=== PATIENT | female | born 1945 | race Two or more races ===

== ENCOUNTER 2024-11-16 16:51 | Emergency (ER) | payer OTHER ==
[~2024-11-16] VITALS: Ht 162.6 cm; Wt 77.0 kg
[2024-11-16 17:20] VITALS: PULSE 72; RESP 16; O2SAT 96
[2024-11-16 17:33] LABS: Chloride 104 mmol/L (98-107); Potassium 3.6 mmol/L (3.5-5.1); Sodium 141 mmol/L (136-145)
[2024-11-16 17:34] LABS: Anion Gap 11 (5-15); Carbon Dioxide 26 mmol/L (20-31)
[2024-11-16 17:40] LABS: BUN/Creatinine Ratio 21.6 (10.0-20.0); Blood Urea Nitrogen 16 mg/dL (9-23); Glucose 102 mg/dL (74-106); Hematocrit 38.3 % (36.0-46.0); Hemoglobin 13.0 g/dL (12.2-16.2); Mean Corpuscular Hemoglobin 32.6 pg (28.0-32.0); Mean Corpuscular Volume 96.0 fL (80.0-100.0); Nucleated Red Blood Cells % 0.3 %
[2024-11-16 18:04] LABS: Calcium 10.4 mg/dL (8.7-10.4)
[2024-11-16] MEDS: levETIRAcetam 1000 mg/100ml 100 ML IV ONE (18:10)
--- NOTE | 2024-11-16 18:28 | DVH ---
Procedure: CT HEAD WITHOUT CONTRAST Study Date and Requested Time: 11/16/2024 05:38 PM History: seizure Comparison: None Dose: CTDI: 59.82 mGy DLP: 1178.8 mGycm Technique: Multiplanar images obtained through the brain without intravenous contrast. Findings: Postsurgical changes of left frontoparietal craniotomy with large area of left frontal, and parietal white matter hypodensities with slight involvement of the temporal and occipital lobes causing mass e ffect on the atrium and occipital horn of the left lateral ventricle. There is about 1 mm rightward m idline shift. No evidence of hydrocephalus. The basal cisterns are patent. The pituitary gland, sella and parasellar regions are unremarkable. The cerebellar tonsils are in nor mal position. The cerebellum is unremarkable. Bilateral lens replacement. Otherwise, orbits and globes are unremarkable. The paranasal sinuses and mastoids are clear. There are no worrisome calvarial lesions. Impression: Postsurgical changes of left frontoparietal craniotomy. There is large area of left frontal, and parietal white matter hypodensities with slight involvement of the temporal and occipital lobes causing mass effect on the atrium and occipital horn of the left lateral ventricle and about 1 mm rightward midline shift. MRI With and without contrast is recommende d for further evaluation of possible mass with associated perilesional /vasogenic edema. Critical Result: Left supratentorial vasogenic/perilesional edema with about 1 mm rightward midline s hift Findings discussed with KWAME ENCARNACION at 11/16/2024 06:25 PM, and acknowledged receipt and understand ing of the findings. ..
[2024-11-16 19:30] VITALS: PULSE 81; RESP 12; O2SAT 96
--- NOTE | 2024-11-16 19:34 | ED.PDOC ---
History of Present Illness HPI Comments 78-year-old female with PMHx Brain Cancer, Breast Cancer, Seizure, HLD presents with a chief complaint of seizure at home. Patient reports that she had a seizure at home that lasted about 2-3 minutes. Patient states that she takes Keppra for her seizures. Patient was at baseline upon arrival to ER with a GCS of 15. Patient also reports feeling constipated for the past 10 days. No other symptoms or modifying factors present at this time. Chief Complaint: Seizure Time Seen by MD: 19:28 Reviewed Notes: Nurses Notes, Medications, Allergies Allergies: Coded Allergies: NO KNOWN ALLERGIES (Unverified , 11/16/24) Information Source: Patient Mode of Arrival: Ambulatory Severity: Moderate Timing: Hours Duration: Since onset Prehospital treatment: None Past Medical History PAST MEDICAL HISTORY: Cancer (BREAST AND BRAIN), High Lipids, Seizures Surgical History (Other): LUMPECTOMY, CRAINIOTOMY, CATARACTS IT APPLICATION SUPPORT ANALYST History: Denies all IT APPLICATION SUPPORT ANALYST Hx Family History Family History: Reviewed,noncontributory to illness Social History Smoker: Non-Smoker Alcohol: Denies ETOH Use Drugs: Denies Drug Use Lives In: Home Constitutional: denies: chills, diaphoresis, fatigue, fever, malaise, sweats, weakness, others EENTM: denies: blurred vision, double vision, ear bleeding, ear discharge, ear drainage, ear pain, ear ringing, eye pain, eye redness, hearing loss, mouth pain, mouth swelling, nasal discharge, nose bleeding, nose congestion, nose pain, photophobia, tearing, throat pain, throat swelling, voice changes, others Respiratory: denies: cough, hemoptysis, orthopnea, SOB at rest, shortness of breath, SOB with excertion, stridor, wheezing, others Cardiovascular: denies: chest pain, dizzy spells, diaphoresis, Dyspnea on exertion, edema, irregular heart beat, left arm pain, lightheadedness, palpitations, PND, syncope, others Gastrointestinal: reports: constipated; denies: abdomen distended, abdominal pain, blood streaked bowels, diarrhea, dysphagia, difficulty swallowing, hematemesis, melena, nausea, poor appetite, poor fluid intake, rectal bleeding, rectal pain, vomiting, others Genitourinary: denies: abnormal vagina bleeding, burning, dyspareunia, dysuria, flank pain, frequency, hematuria, incontinence, pain, , vagina discharge, urgency, others Neurological: reports: seizure; denies: dizziness, fainting, headache, left sided numbness, left sided weakness, numbness, paresthesia, pre-existing deficit, right sided numbness, right sided weakness, speech problems, tingling, tremors, weakness, others Musculoskeletal: denies: back pain, gout, joint pain, joint swelling, muscle pain, muscle stiffness, neck pain, others Integumetry: denies: bruises, change in color, change in hair/nails, dryness, laceration, lesions, lumps, rash, wounds, others Allergic/Immunocompromised: denies: Difficulty Healing, Frequent Infections, Hives, Itching, others Hematologic/Lymphatic: denies: anemia, blood clots, easy bleeding, easy bruising, swollen glands, others Endocrine: denies: excessive hunger, excessive sweating, excessive thirst, excessive urination, flushing, intolerance to cold, intolerance to heat, unexplained weight gain, unexplained weight loss, others Psychiatric: denies: anxiety, bipolar disorder, depression, hopeless, panic disorder, schizophrenia, sleepless, suicidal, others All Other Systems: Reviewed and Negative Physical Exam General Appearance: Moderate Distress HEENT: Normal ENT Inspection, Pharynx Normal, TMs Normal Neck: Full Range of Motion, Non-Tender, Normal, Normal Inspection Respiratory: Chest Non-Tender, Lungs Clear, No Accessory Muscle Use, No Respiratory Distress, Normal Breath Sounds Cardiovascular: No Edema, No JVD, No Murmur, No Gallop, Normal Peripheral Pulses, Regular Rate/Rhythm Breast Exam: Deferred Gastrointestinal: No Organomegaly, Non Tender, No Pulsatile Mass, Normal Bowel Sounds, Soft Genitalia: Deferred Pelvic: Deferred Rectal: Deferred Extremities: No calf tenderness, Normal capillary refill, Normal inspection, Normal range of motion, Non-tender, No pedal edema Musculoskeletal : Apperance: Normal Neurologic: web retailer II-XII nml as Tested, Motor Weakness, Normal Affect, Normal Mood, No Sensory Deficits Cerebellar Function: Unable to Test Reflexes: Normal Skin: Dry, Pallor, Warm Lymphatic: No Adenopathy Was a procedure done? Was a procedure done?: No EKG EKG : Pulse Rate (adult): 79 [place]: Normal Cardiac Rhythm: NSR Block: None Hypertrophy: None ST: Normal Differential Dx Considerations may include: Intracranial mass, intracranial bleed, generalized weakness X-Ray, Labs, Meds, VS Vital Signs Date Time Temp Pulse Resp B/P (MAP) Pulse Ox O2 Delivery O2 Flow Rate FiO2 11/16/24 19:34 79 11/16/24 19:08 79 11/16/24 17:20 72 16 134/78 (96) 96 11/16/24 17:20 72 16 96 Room Air* 0 21 11/16/24 17:12 98.6 86 18 138/88 (105) 99 98.6 Lab Test 11/16/24 18:15 11/16/24 17:11 Range/Units POC Glucose 93 70-106 mg/dl White Blood Count 4.3 L 4.4-10.8 10^3/uL Red Blood Count 3.98 L 4.0-5.20 10^6/uL Hemoglobin 13.0 12.2-16.2 g/dL Hematocrit 38.3 36.0-46.0 % Mean Corpuscular Volume 96.0 80.0-100.0 fL Mean Corpuscular Hemoglobin 32.6 H 28.0-32.0 pg Mean Corpuscular Hemoglobin Concent 33.9 32.0-36.0 g/dL Red Cell Distribution Width 14.4 H 11.8-14.3 % Platelet Count 189 140-450 10^3/uL Mean Platelet Volume 7.2 6.9-10.8 fL Neutrophils (%) (Auto) 75.2 37.0-80.0 % Lymphocytes (%) (Auto) 13.0 10.0-50.0 % Monocytes (%) (Auto) 10.6 0.0-12.0 % Eosinophils (%) (Auto) 1.0 0.0-7.0 % Basophils (%) (Auto) 0.2 0.0-2.0 % Neutrophils # (Auto) 3.3 1.6-8.6 10 ^3/uL Lymphocytes # (Auto) 0.6 0.4-5.4 10 ^3/uL Monocytes # (Auto) 0.5 0-1.3 10 ^3/uL Eosinophils # (Auto) 0 0-0.8 10 ^3/uL Basophils # (Auto) 0 0-0.2 10 ^3/uL Nucleated Red Blood Cells 0.3 % Sodium Level 141 136-145 mmol/L Potassium Level 3.6 3.5-5.1 mmol/L Chloride Level 104 98-107 mmol/L Carbon Dioxide Level 26 20-31 mmol/L Anion Gap 11 5-15 Blood Urea Nitrogen 16 9-23 mg/dL Creatinine 0.74 0.550-1.02 mg/dL Glomerular Filtration Rate Calc 83 >90 mL/min BUN/Creatinine Ratio 21.6 H 10.0-20.0 Serum Glucose 102 74-106 mg/dL Calcium Level 10.4 8.7-10.4 mg/dL Current Medications Medications (Trade) Dose Ordered Sig/Fifi Route Start Time Stop Time Status Last Admin Levetiracetam 100 ml @ 400 mls/hr ONCE ONCE IV 11/16/24 17:00 11/16/24 17:14 DC 11/16/24 18:10 IV Hep-Lock was established The patient was started on Keppra IV piggyback The CAT scan of the head shows: Impression: Postsurgical changes of left frontoparietal craniotomy. There is large area of left frontal, and parietal white matter hypodensities with slight involvement of the temporal and occipital lobes causing mass effect on the atrium and occipital horn of the left lateral ventricle and about 1 mm rightward midline shift. MRI With and without contrast is recommended for further evaluation of possible mass with associated perilesional /vasogenic edema. 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 Images Reviewed?: Images reviewed and evaluated by me Time of 1ST Reevaluation: 19:59 Reevaluation 1ST: Improved Patient Education/Counseling: Diagnosis, Treatment, Prognosis Family Education/Counseling: No Family Present SEPSIS Sepsis Screen Date sepsis recognized/suspect: Nov 16, 2024 Time Sepsis recognized/suspect: 1719 Recent Procedure: No On Antibiotic Therapy: No Respiratory Rate >20: No Heart Rate >90: No Temp<36 C (96.8 F) or >38.3 C: No SBP <90 or MAP <65 mmHG: No New Acute Mental Status Change: No Is the patient on CPAP, BIPAP,: No Physician Orders Pulse Oximetry (11/16/24 16:57) Blood Pressure (11/16/24 16:57) Heplock Iv (11/16/24 16:57) Seizure Precautions (11/16/24 16:57) Upholstery Auto Trimmer (11/16/24 16:57) Electrocardigram (11/16/24 16:57) Head Without Contrast (11/16/24 16:57) Urinalysis (11/16/24 16:57) Dexamethasone Injection (Decadron Inject (11/16/24 21:00) Vital Signs Date Time Temp Pulse Resp B/P (MAP) Pulse Ox O2 Delivery O2 Flow Rate FiO2 11/16/24 19:34 79 11/16/24 19:08 79 11/16/24 17:20 72 16 134/78 (96) 96 11/16/24 17:20 72 16 96 Room Air* 0 21 11/16/24 17:12 98.6 86 18 138/88 (105) 99 98.6 Laboratory Tests Test 11/16/24 17:11 White Blood Count 4.3 10^3/uL (4.4-10.8) L Medications Medications Dose Ordered Sig/Fifi Route Start Time Stop Time Status Last Admin Dose Admin Levetiracetam 100 ml @ 400 mls/hr ONCE ONCE IV 11/16/24 17:00 11/16/24 17:14 DC 11/16/24 18:10 Departure 1 Departure Time of Disposition: 20:46 Impression: Primary Impression: Breakthrough seizure Additional Impression: Intracranial mass Disposition: 09 ADMITTED INPATIENT Admit to: Tele Condition: Fair Critical Care Note Critical Care Time?: Yes (45 min-critical care time only) Stability Stability form required: Yes Unstable for transfer: Telemetry monitoring (Telemetry monitoring required), ED Physician Assesment (Clinical assesment) Heart Score Heart Score: Heart Score Response (Comments) Value History N/A 0 EKG N/A 0 Age N/A 0 Risk Factors N/A 0 Troponin N/A 0 Total 0 I personally scribed for KWAME ENCARNACION MD ([email or web address]) on 11/16/24 at 19:34. Electronically submitted by Can Quiñones ([email or web address]). KWAME ENCARNACION MD Nov 16, 2024 19:34
[2024-11-16] MEDS: LEVALBUTEROL HCL 1.25 MG/3 ML NEB NEB SCH (21:06)
[2024-11-16] MEDS: LORazepam 2MG/ML-1ML VIAL IV ONE (22:11)
[2024-11-17 00:55] VITALS: BP 130/74; PULSE 91; RESP 15; TEMP 98.9; O2SAT 96
[2024-11-17] MEDS: LORazepam 2MG/ML-1ML VIAL IV ONE (01:00)
== END 2024-11-16 20:59 | disposition short-term general hospital (02) ==
LOC: ER 16:51 → EDBD 16:51 → ER 20:59
DX: R56.9 Unspecified convulsions (principal); R22.0 Localized swelling, mass and lump, head; E78.5 Hyperlipidemia, unspecified; Z85.3 Personal history of malignant neoplasm of breast; Z98.890 Other specified postprocedural states
CPT/HCPCS: 36415; 70450; 80048; 82947; 85025; 96365; 96375; 96376; 99285; J1100; J1953; J2060; 82962; 99291

== ENCOUNTER 2025-01-04 16:13 | Inpatient (IN) | payer OTHER ==
[2025-01-04] VITALS (20 sets, daily range): BP systolic 76–122; BP diastolic 34–87; PULSE 80–123; RESP 20–28; TEMP 96.6–100.4; O2SAT 91–100
[~2025-01-04] VITALS: Ht 167.6 cm; Wt 69.6 kg
[2025-01-04] MEDS ORDERED: ETOMIDATE (2MG/ML) 20ML VIAL IV ONE (16:19)
[2025-01-04] MEDS ORDERED: ROCURONIUM 10MG/ML 10ML VIAL IV ONE (16:19)
[2025-01-04] MEDS: ETOMIDATE (2MG/ML) 20ML VIAL IV ONE (16:25)
[2025-01-04] MEDS: ROCURONIUM 10MG/ML 10ML VIAL IV ONE (16:25)
--- NOTE | 2025-01-04 16:25 | ED.PDOC ---
SOB-HPI HPI Comments 79-year-old female presents to the ED via EMS with a chief complaint of shortness a breath onset today about 30 minutes prior to ED arrival. Patient was recently discharged from [facility] with a diagnosis of PE, patient was also diagnosed with sepsis a week ago. Patient is from [facility], got up from her bed and was [facility], began experiencing shortness of breath, nursing staff noticed, O2 sat was in the 70s. Upon EMS a rrival patient's O2 sat was 75%, was placed on a CPAP. Is GCS 15, is not able to speak due to respiratory distress. PMHx cancer, HLD, PE, seizure. No other symptoms or modifying factors present at this time. Time Seen by MD: 16:15 Reviewed notes: Medications, Allergies Information Source: Emergency Med Personnel Mode of Arrival: EMS Severity: Moderate Timing: Minutes Duration: Since onset Context: At Rest PE Risk Factors: None History of: DVT/PE Prehospital treatment: C-Pap Modifying Factors: Nothing Past Medical History PAST MEDICAL HISTORY: Cancer, High Lipids, PE, Seizures Surgical History: Denies all surgeries TOUCH UP WORKER History: Denies all TOUCH UP WORKER Hx Family History Family History: Reviewed,noncontributory to illness Social History Smoker: Non-Smoker Alcohol: Denies ETOH Use Drugs: Denies Drug Use Lives In: Home Constitutional: denies: chills, diaphoresis, fatigue, fever, malaise, sweats, weakness, others EENTM: denies: blurred vision, double vision, ear bleeding, ear discharge, ear drainage, ear pain, ear ringing, eye pain, eye redness, hearing loss, mouth pain, mouth swelling, nasal discharge, nose bleeding, nose congestion, nose pain, photophobia, tearing, throat pain, throat swelling, voice changes, others Respiratory: reports: shortness of breath; denies: cough, hemoptysis, orthopnea, SOB at rest, SOB with excertion, stridor, wheezing, others Cardiovascular: denies: chest pain, dizzy spells, diaphoresis, Dyspnea on exertion, edema, irregular heart beat, left arm pain, lightheadedness, palpitations, PND, syncope, others Gastrointestinal: denies: abdomen distended, abdominal pain, blood streaked bowels, constipated, diarrhea, dysphagia, difficulty swallowing, hematemesis, melena, nausea, poor appetite, poor fluid intake, rectal bleeding, rectal pain, vomiting, others Genitourinary: denies: abnormal vagina bleeding, burning, dyspareunia, dysuria, flank pain, frequency, hematuria, incontinence, pain, , vagina discharge, urgency, others Neurological: denies: dizziness, fainting, headache, left sided numbness, left sided weakness, numbness, paresthesia, pre-existing deficit, right sided numbness, right sided weakness, seizure, speech problems, tingling, tremors, weakness, others Musculoskeletal: denies: back pain, gout, joint pain, joint swelling, muscle pain, muscle stiffness, neck pain, others Integumetry: denies: bruises, change in color, change in hair/nails, dryness, laceration, lesions, lumps, rash, wounds, others Allergic/Immunocompromised: denies: Difficulty Healing, Frequent Infections, Hives, Itching, others Hematologic/Lymphatic: denies: anemia, blood clots, easy bleeding, easy bruising, swollen glands, others Endocrine: denies: excessive hunger, excessive sweating, excessive thirst, excessive urination, flushing, intolerance to cold, intolerance to heat, un explained weight gain, unexplained weight loss, others Psychiatric: denies: anxiety, bipolar disorder, depression, hopeless, panic disorder, schizophrenia, sleepless, suicidal, others All Other Systems: Reviewed and Negative Physical Exam General Appearance: Severe Distress HEENT: Normal ENT Inspection, Pharynx Normal, TMs Normal Neck: Full Range of Motion, Non-Tender, Normal, Normal Inspection Respiratory: Accessory Muscle Use, Respiratory Distress Cardiovascular: Tachycardia Breast Exam: Deferred Gastrointestinal: No Organomegaly, Non Tender, No Pulsatile Mass, Normal Bowel Sounds, Soft Genitalia: Deferred Pelvic: Deferred Rectal: Deferred Extremities: No calf tenderness, No pedal edema Musculoskeletal : Apperance: Normal Neurologic: Alert, No Motor Deficits, No Sensory Deficits Cerebellar Function: NOT DONE Reflexes: NOT DONE Skin: Other (Bilateral lower extremity skin mottled) Peripheral Pulses: 3+ Radial (R), 3+ Radial (L) Lymphatic: No Adenopathy Was a procedure done? Was a procedure done?: Yes Sedation Sedation?: No Informed consent obtained: Yes Sedation total time: patient is currently under sedation Central Line Recorder of insertion practice: Observer Occupation of liquid flavor compounder: Name of liquid flavor compounder (Resident) Indication: Hypotension, CVP monitoring Room prepared for procedure: Yes Flight Radio Operator performed hand hygien: Yes Maximal sterile barrier precau: Mask/Eye shield, Sterile gown Skin Preparation: Chlorhexidine gluconate, Providine iodine Skin preparation completely dr: Yes Insertion site: Right, Internal jugular Central line catheter type: [id number] dialysis Number of lumens: 3 Antiseptic ointment applied to: Yes Post Assessment: Chest X-Ray Intubation Indication: Respiratory Insufficiency Prep: Preoxygenation Pretreated with: Sedation, Other (etomidate 20 mg, Roccuronium 100 mg ) Medicated with: Vecuronium Intubation Approach: Orotracheal (8.0) Intubation size: cm (24 ) Informed consent obtained: Yes Risks/benefits/alt described: Yes Differential Dx Differential Diagnosis: Anxiety, Asthma, Bronchitis, CHF, COPD X-Ray, Labs, Meds, VS Vital Signs Date Time Temp Pulse Resp B/P (MAP) Pulse Ox O2 Delivery O2 Flow Rate FiO2 01/04/25 16:30 123 20 122/89 (100) 100 100 01/04/25 16:15 101.7 131 20 119/75 (90) 100 101.7 01/04/25 16:13 133 32 87/59 80 Lab Test 01/04/25 17:15 Range/Units White Blood Count 10.3 4.4-10.8 10^3/uL Red Blood Count 3.85 L 4.0-5.20 10^6/uL Hemoglobin 12.4 12.2-16.2 g/dL Hematocrit 37.0 36.0-46.0 % Mean Corpuscular Volume 96.0 80.0-100.0 fL Mean Corpuscular Hemoglobin 32.1 H 28.0-32.0 pg Mean Corpuscular Hemoglobin Concent 33.5 32.0-36.0 g/dL Red Cell Distribution Width 15.2 H 11.8-14.3 % Platelet Count 181 140-450 10^3/uL Mean Platelet Volume 7.1 6.9-10.8 fL Neutrophils (%) (Auto) 84.0 H 37.0-80.0 % Lymphocytes (%) (Auto) 13.2 10.0-50.0 % Monocytes (%) (Auto) 2.6 0.0-12.0 % Eosinophils (%) (Auto) 0.2 0.0-7.0 % Basophils (%) (Auto) 0.0 0.0-2.0 % Neutrophils # (Auto) 8.6 1.6-8.6 10 ^3/uL Lymphocytes # (Auto) 1.4 0.4-5.4 10 ^3/uL Monocytes # (Auto) 0.3 0-1.3 10 ^3/uL Eosinophils # (Auto) 0 0-0.8 10 ^3/uL Basophils # (Auto) 0 0-0.2 10 ^3/uL Nucleated Red Blood Cells 0.1 % Prothrombin Time Pending Prothrombin Time INR Pending Activated Partial Thromboplast Time Pending Sodium Level 139 136-145 mmol/L Potassium Level 3.4 L 3.5-5.1 mmol/L Chloride Level 107 98-107 mmol/L Carbon Dioxide Level 22 20-31 mmol/L Anion Gap 10 5-15 Blood Urea Nitrogen 13 9-23 mg/dL Creatinine 0.47 L 0.550-1.02 mg/dL Glomerular Filtration Rate Calc 97 >90 mL/min BUN/Creatinine Ratio 27.7 H 10.0-20.0 Serum Glucose 150 H 74-106 mg/dL Lactic Acid Level Pending Calcium Level 8.1 L 8.7-10.4 mg/dL Total Bilirubin 1.1 H 0.2-1.0 mg/dL Aspartate Amino Transferase (AST) 88 H 13-40 U/L Alanine Aminotransferase (ALT) 93 H 7-40 U/L Alkaline Phosphatase 322 H 46-116 U/L Total Protein 6.0 5.7-8.2 g/dL Albumin 3.3 3.2-4.8 g/dL Current Medications Medications (Trade) Dose Ordered Sig/Fifi Route Start Time Stop Time Status Last Admin Vancomycin HCl 250 ml @ 250 mls/hr ONCE ONCE IV 01/04/25 16:45 01/04/25 17:44 DC 01/04/25 17:31 Sodium Chloride 1,000 ml @ 1,000 mls/hr Q1H ONCE IV 01/04/25 16:45 01/04/25 17:44 DC 01/04/25 17:07 Acetaminophen (Ofirmev) 1,000 mg ONCE ONCE IV 01/04/25 17:30 01/04/25 17:31 DC 01/04/25 17:33 Patient alert. Placed on oxygen. Respiratory distress. Using accessory muscles. Skin mottled. Tachycardia. Sepsis protocol. Had to intubate the patient. Placed a central line. Continue to monitor. Time of 1ST Reevaluation: 16:45 Reevaluation 1ST: Unchanged Patient Education/Counseling: Diagnosis, Treatment, Prognosis Family Education/Counseling: No Family Present SEPSIS Sepsis Screen Physician Orders Ventilator Orders (01/04/25 16:30) Abg W/ Co-Ox (01/04/25 18:00) Respiratory Culture W/ Gs (01/04/25 16:30) PTPTT (01/04/25 16:40) Urinalysis (01/04/25 16:40) Chest Portable (01/04/25 16:40) Accucheck (01/04/25 16:40) Blood Culture (01/04/25 16:40) Lactic Acid W/ Reflex Order (01/04/25 18:00) Cefepime 1gm/50ml (Maxipime 1gm/50ml) (01/04/25 22:00) Notify Md If Map <65 Or Bp<90 (01/04/25 16:40) If Map<65 Start Vasopressor (01/04/25 16:40) Sepsis Reassesment After Fluid (01/04/25 17:40) Sodium Chloride 0.9% (01/04/25 16:45) Midazolam Drip 50 Mg/50ml (Versed Drip 5 (01/04/25 17:00) Rass Sedation Scale Q1HR (01/04/25 16:47) Vital Signs Date Time Temp Pulse Resp B/P (MAP) Pulse Ox O2 Delivery O2 Flow Rate FiO2 01/04/25 16:30 123 20 122/89 (100) 100 100 01/04/25 16:15 101.7 131 20 119/75 (90) 100 101.7 01/04/25 16:13 133 32 87/59 80 Laboratory Tests Test 01/04/25 17:15 Lactic Acid Level Pending White Blood Count 10.3 10^3/uL (4.4-10.8) Medications Medications Dose Ordered Sig/Fifi Route Start Time Stop Time Status Last Admin Dose Admin Acetaminophen 1,000 mg ONCE ONCE IV 01/04/25 17:30 01/04/25 17:31 DC 9/9/25 17:33 Sodium Chloride 1,000 ml @ 1,000 mls/hr Q1H ONCE IV 01/04/25 16:45 01/04/25 17:44 DC 01/04/25 17:07 Vancomycin HCl 250 ml @ 250 mls/hr ONCE ONCE IV 01/04/25 16:45 01/04/25 17:44 DC 01/04/25 17:31 Departure 1 Departure Time of Disposition: 16:47 Impression: Primary Impression: Acute respiratory failure Qualified Codes: J96.01 - Acute respiratory failure with hypoxia Additional Impression: Sepsis Qualified Codes: A41.9 - Sepsis, unspecified organism Disposition: ADMITTED INPATIENT Admit to: ICU Condition: Guarded Critical Care Note Critical Care Time?: Yes (90 min-critical care time only) Stability Stability form required: No Heart Score Heart Score: Heart Score Response (Comments) Value History Slightly Suspicious 0 EKG Normal 0 Age >65 2 Risk Factors >3 or Hx ASHD 2 Troponin Normal limit 0 Total 4 I personally scribed for STEFANO REED MD ([email or web address]) on 01/04/25 at 16:25. Electronically submitted by Alis Pinedo ([email or web address]). I personally scribed for STEFANO REED MD ([email or web address]) on 01/04/25 at 16:33. Electronically submitted by Alis Pinedo ([email or web address]). I personally scribed for STEFANO REED MD ([email or web address]) on 01/04/25 at 16:35. Electronically submitted by Alis Pinedo ([email or web address]). STEFANO REED MD Jan 04, 2025 16:25
[2025-01-04] MEDS: MIDAZOLAM DRIP 50 mg/50mL 50 ML IV ONE (16:32)
[2025-01-04] MEDS: MIDAZOLAM DRIP 50 mg/50mL 50 ML IV SCH (17:00)
[2025-01-04] MEDS: SODIUM CHLORIDE 0.9% 1,000 ML IV ONE ×2 (17:07→17:45)
--- NOTE | 2025-01-04 17:08 | DVH ---
EXAM: XY CHEST PORTABLE HISTORY: sob TECHNIQUE: 1 view of the chest COMPARISON: None FINDINGS/IMPRESSION: LUNGS: Hazy alveolar opacities of the periphery of bilateral upper lobes. MEDIASTINUM: Unremarkable BONES: No acute osseous abnormality OTHER: Endotracheal tube 5 cm above the gin. Enteric tube in the stomach.
[2025-01-04] MEDS: VANCOMYCIN 1GM/250ML KIT 250 ML IV ONE (17:31)
[2025-01-04 17:33] LABS: Hematocrit 37.0 % (36.0-46.0); Hemoglobin 12.4 g/dL (12.2-16.2); Mean Corpuscular Hemoglobin 32.1 pg (28.0-32.0); Mean Corpuscular Volume 96.0 fL (80.0-100.0); Nucleated Red Blood Cells % 0.1 %
[2025-01-04] MEDS: ACETAMINOPHEN IV 1000 MG/100ML (10MG/ML) IV ONE (17:33)
[2025-01-04 17:45] LABS: Alanine Aminotransferase 93 U/L (7-40); Albumin 3.3 g/dL (3.2-4.8); Alkaline Phosphatase 322 U/L (46-116); Anion Gap 10 (5-15); BUN/Creatinine Ratio 27.7 (10.0-20.0); Bilirubin, Total 1.1 mg/dL (0.2-1.0); Blood Urea Nitrogen 13 mg/dL (9-23); Calcium 8.1 mg/dL (8.7-10.4); Carbon Dioxide 22 mmol/L (20-31); Chloride 107 mmol/L (98-107); Glucose 150 mg/dL (74-106); Potassium 3.4 mmol/L (3.5-5.1); Sodium 139 mmol/L (136-145); Total Protein 6.0 g/dL (5.7-8.2)
[2025-01-04] MEDS: NOREPINEPHRINE 8 MG/250ML KIT 250 ML IV SCH (17:50)
[2025-01-04 17:51] LABS: INR 1.11 (0.9-1.15); Partial Thromboplastin Time 26.1 SEC (24.5-34.5); Prothrombin Time 11.6 sec (9.3-11.8)
[2025-01-04] MEDS: NOREPINEPHRINE 8 MG/250ML KIT 250 ML IV ONE (18:01)
[2025-01-04 18:12] LABS: Lactic Acid w/Reflex 2.7 mmol/L (0.4-2.0)
--- NOTE | 2025-01-04 18:56 | DVH ---
CHEST RADIOGRAPH Indication: CENTRAL LINE PLACEMENT Technique: XY CHEST XRAY 1 VIEW COMPARISON: 01/05/2020 FINDINGS: The cardiac silhouette is enlarged. The lungs demonstrate bilateral patchy airspace opacities. There is more pronounced right upper lung airspace disease and left mid lung airspace disease. Left midlun g cavitary appearing lesion measuring 7 cm. The pulmonary vasculature is prominent. Small bilateral p leural effusions, increased from prior examination. There is no pneumothorax. Nasogastric tube projects towards stomach. Endotracheal tube tip projects 3.9 cm above gin. Righ t IJ catheter tip projects over SVC IMPRESSION: As above. Recommend CT chest to further evaluate. Follow-up to resolution.
[2025-01-04 19:29] LABS: Urine Budding Yeast MANY /hpf (None Seen); Urine Protein, UAD 1+ (Negative)
[2025-01-04] MEDS ORDERED: MORPHINE SULFATE INJ 2 MG/ml SYRG IV PRN (19:30)
[2025-01-04] MEDS ORDERED: ONDANSETRON HCL 4 MG/2 ML VIAL IV PRN (19:30)
[2025-01-04] MEDS ORDERED: VANCOMYCIN PER PHARMACY 0 MG IV SCH (19:30)
[2025-01-04] MEDS ORDERED: NITROGLYCERIN 0.4 MG SL TAB SL PRN (19:30)
[2025-01-04] MEDS ORDERED: ACETAMINOPHEN 325 MG TAB PO PRN (19:30)
[2025-01-04] MEDS: CEFEPIME 1GM/50ML 50 ML IV SCH (22:05)
[2025-01-04 22:23] LABS: Base Excess -7.0 mmol/L (-2.0-3.0)
[2025-01-04] MEDS: IOHEXOL 350 MG/ML 100ML IJ ONE (22:51)
--- NOTE | 2025-01-04 23:33 | DVH ---
EXAM: CT CT ANGIO CHEST CONTRAST History: r/o pe, SOB Comparison Study: None TECHNIQUE: A digital associate professor of sociology image was obtained. During the uneventful, intravenous administration of c ontrast material, multislice data acquisition was obtained through the chest. 3-D postprocessing is performed by technologist including MIP imaging Radiation Dose : CTDI vol 23.68 mGy, DLP 23.68 mGy*cm. Findings: Evaluation is degraded by respiratory motion. Lungs /pleura: There are peripheral opacities within the upper lobes favored to reflect pulmonary inf arcts. There are small bilateral pleural effusions with adjacent opacity. An endotracheal tube is not ed. Heart/Great vessels: There is mild cardiomegaly. There are filling defects within the main pulmonary arteries extending into the segmental and subsegmental branches. There is enlargement of the right ve ntricle suggesting right heart strain. There are mild atherosclerotic calcifications of the aorta. Mediastinum: Unremarkable. Soft tissues/Bones: Unremarkable Upper abdomen: There is cholelithiasis. There is reflux of contrast into the hepatic veins and IVC. A nasogastric tube is noted. Impression: 1. Saddle pulmonary embolus with suggestion of right heart strain. Additional pulmonary emboli as det yaima. 2. Bilateral pulmonary infarcts. 3. Small bilateral pleural effusions with adjacent opacity. 4. Additional findings as detailed. Critical Result: Pumonary Emboli Findings discussed with MARIMAR Alex , at 01/04/2025 11:30 PM, and acknowledged receipt and understanding of the findings.
[2025-01-05] VITALS (35 sets, daily range): BP systolic 82–129; BP diastolic 47–93; PULSE 76–109; RESP 20–29; TEMP 96.6–98.6; O2SAT 96–100
[2025-01-05] MEDS ORDERED: HEPARIN SODIUM (PORCINE) 5000 UNITS/ML 1ML VIAL IV ONE
[2025-01-05] MEDS ORDERED: HEPARIN DRIP/D5W 100UNITS/ML 250 ML IV SCH
[2025-01-05 00:30] LABS: INR 1.08 (0.9-1.15); Partial Thromboplastin Time 29.3 SEC (24.5-34.5); Prothrombin Time 11.4 sec (9.3-11.8)
[2025-01-05 00:51] LABS: Hematocrit 31.7 % (36.0-46.0); Hemoglobin 11.1 g/dL (12.2-16.2); Mean Corpuscular Hemoglobin 32.7 pg (28.0-32.0); Mean Corpuscular Volume 94.0 fL (80.0-100.0); Nucleated Red Blood Cells % 0.1 %
[2025-01-05] MEDS: FUROSEMIDE 20 MG/2 ML VIAL IV ONE (01:46)
[2025-01-05] MEDS: ENOXAPARIN SOD 100 MG/1 ML SYRINGE SC SCH (01:47)
--- NOTE | 2025-01-05 02:44 | DVHHP2 ---
History of Present Illness Reason for Visit: Shortness for breath History of Present Illness 79-year-old female presents for evaluation of shortness for breath. Patient is currently sedated and intubated. Patient with a history of pulmonary embolism diagnosed two weeks ago at [facility]. Patient recently discharged couple of days ago from [facility] after being admitted and treated for sepsis secondary to UTI. Patient was sent to [place] in assisted living. Patient started having shortness for breath and was brought in for evaluation. On arrival to the emergency department patient was placed on CPAP and subsequently emergently intubated for airway protection. Past Medical History Glioblastoma, dyslipidemia, seizure, pulmonary embolism Past Surgical History Tumor removal Family History Noncontributory Smoke: No ALCOHOL: none Drugs: None Review of Systems Review of Systems Unable to complete review of systems the patient is sedated and intubated. Allergies: Coded Allergies: NO KNOWN ALLERGIES (Unverified , 11/16/24) Medications Current Medications Medications Dose Ordered Sig/Fifi Route Start Time Stop Time Status Last Admin Dose Admin Cefepime HCl 50 ml @ 12.5 mls/hr Q8HR IV 01/04/25 22:00 01/04/25 22:05 12.5 MLS/HR Midazolam HCl 50 ml @ 1 mls/hr Q24H IV 01/04/25 17:00 01/04/25 22:06 7 MLS/HR Norepinephrine Bitartrate 250 ml @ 3.75 mls/hr Q24H IV 01/04/25 18:00 01/04/25 17:50 3.75 MLS/HR Vancomycin HCl 0 ml @ 0 mls/hr UD IV 01/04/25 19:30 Ondansetron HCl 4 mg Q4HP PRN IV 01/04/25 19:30 Acetaminophen 650 mg Q6HP PRN PO 01/04/25 19:30 Nitroglycerin 0.4 mg Q5MINP PRN SL 01/04/25 19:30 Morphine Sulfate 2 mg Q30M PRN IV 01/04/25 19:30 Vancomycin HCl 250 ml @ 250 mls/hr DAILY@1800 IV 01/05/25 18:00 Enoxaparin Sodium 80 mg Q12HR SC 01/05/25 00:30 01/05/25 01:47 80 MG Exam Vital Signs Vital Signs Date Time Temp Pulse Resp B/P (MAP) Pulse Ox O2 Delivery O2 Flow Rate FiO2 01/05/25 02:01 97 27 109/75 (86) 100 30 01/04/25 23:18 99.0 99.0 01/04/25 16:15 Bi-Pap+ Exam Gen: 79-year-old female in mild distress Skin: Warm, dry, normal color and texture, no rash. HEENT: Normocephalic atraumatic, mucous membranes moist and pink. Neck: Cervical and supraclavicular nodes normal without enlargement, trachea is midline, thyroid gland is normal without masses. Pulmonary: Intubated Cardiac: Regular rate and rhythm. No murmur Abdomen: Soft, nontender, nondistended, bowel sounds present all 4 quadrants, no guarding, no rigidity, no organomegaly. Extremities: No cyanosis, clubbing, no edema Neuro: Sedated Labs/Xrays ORDERING PHYSICIAN: STEFANO REED MD PROCEDURE(s): CXR1 - CHEST XRAY 1 VIEW REASON: CENTRAL LINE PLACEMENT ORDER NUMBER(s): [id number], ACCESSION NUMBER(s): [id number] CHEST RADIOGRAPH Indication: CENTRAL LINE PLACEMENT Technique: XY CHEST XRAY 1 VIEW COMPARISON: 01/05/2020 FINDINGS: The cardiac silhouette is enlarged. The lungs demonstrate bilateral patchy airspace opacities. There is more pronounced right upper lung airspace disease and left mid lung airspace disease. Left midlung cavitary appearing lesion measuring 7 cm. The pulmonary vasculature is prominent. Small bilateral pleural effusions, increased from prior examination. There is no pneumothorax. Nasogastric tube projects towards stomach. Endotracheal tube tip projects 3.9 cm above gin. Right IJ catheter tip projects over SVC IMPRESSION: As above. Recommend CT chest to further evaluate. Follow-up to resolution. RING PHYSICIAN: BRITTANY BYERS PROCEDURE(s): CTACH - CT ANGIO CHEST CONTRAST REASON: r/o pe ORDER NUMBER(s): [id number], ACCESSION NUMBER(s): [id number] EXAM: CT CT ANGIO CHEST CONTRAST History: r/o pe, SOB Comparison Study: None TECHNIQUE: A digital motor vehicle license clerk image was obtained. During the uneventful, intravenous administration of contrast material, multislice data acquisition was obtained through the chest. 3-D postprocessing is performed by technologist including MIP imaging Radiation Dose : CTDI vol 23.68 mGy, DLP 23.68 mGy*cm. Findings: Evaluation is degraded by respiratory motion. Lungs /pleura: There are peripheral opacities within the upper lobes favored to reflect pulmonary infarcts. There are small bilateral pleural effusions with adjacent opacity. An endotracheal tube is noted. Heart/Great vessels: There is mild cardiomegaly. There are filling defects within the main pulmonary arteries extending into the segmental and subsegmental branches. There is enlargement of the right ventricle suggesting right heart strain. There are mild atherosclerotic calcifications of the aorta. Mediastinum: Unremarkable. Soft tissues/Bones: Unremarkable Upper abdomen: There is cholelithiasis. There is reflux of contrast into the hepatic veins and IVC. A nasogastric tube is noted. Impression: 1. Saddle pulmonary embolus with suggestion of right heart strain. Additional pulmonary emboli as detailed. 2. Bilateral pulmonary infarcts. 3. Small bilateral pleural effusions with adjacent opacity. 4. Additional findings as detailed. Critical Result: Pumonary Emboli Findings discussed with MARIMAR Alex , at 01/04/2025 11:30 PM, and acknowledged r eceipt and understanding of the findings. Labs Test 01/05/25 00:15 01/04/25 23:57 01/04/25 22:13 01/04/25 19:28 Range/Units White Blood Count 10.1 4.4-10.8 10^3/uL Red Blood Count 3.38 L 4.0-5.20 10^6/uL Hemoglobin 11.1 L 12.2-16.2 g/dL Hematocrit 31.7 #L 36.0-46.0 % Mean Corpuscular Volume 94.0 80.0-100.0 fL Mean Corpuscular Hemoglobin 32.7 H 28.0-32.0 pg Mean Corpuscular Hemoglobin Concent 34.8 32.0-36.0 g/dL Red Cell Distribution Width 14.7 H 11.8-14.3 % Platelet Count 188 140-450 10^3/uL Mean Platelet Volume 7.4 6.9-10.8 fL Neutrophils (%) (Auto) 91.9 H 37.0-80.0 % Lymphocytes (%) (Auto) 4.8 L 10.0-50.0 % Monocytes (%) (Auto) 3.2 0.0-12.0 % Eosinophils (%) (Auto) 0.0 0.0-7.0 % Basophils (%) (Auto) 0.1 0.0-2.0 % Neutrophils # (Auto) 9.3 H 1.6-8.6 10 ^3/uL Lymphocytes # (Auto) 0.5 0.4-5.4 10 ^3/uL Monocytes # (Auto) 0.3 0-1.3 10 ^3/uL Eosinophils # (Auto) 0 0-0.8 10 ^3/uL Basophils # (Auto) 0 0-0.2 10 ^3/uL Nucleated Red Blood Cells 0.1 % Prothrombin Time 11.4 9.3-11.8 sec Prothrombin Time INR 1.08 0.9-1.15 Activated Partial Thromboplast Time 29.3 24.5-34.5 SEC Troponin I High Sensitivity 206 *H </=34 ng/L Blood Gas Specimen Type Arterial Blood Gas Sample Site Right radial Blood Gas Patient Temperature 37.0 Arterial Blood Date Drawn Arterial Blood pH 7.382 7.350-7.450 Arterial Blood Partial Pressure CO2 29.0 L 32.0-45.0 mmHg Arterial Blood Partial Pressure O2 440.9 *H 83.0-108.0 mmHg Arterial Blood HCO3 16.8 L 21.0-28.0 mmol/L Arterial Blood Oxygen Saturation 99.8 H 94.0-98.0 % Arterial Blood Base Excess -7.0 L -2.0-3.0 mmol/L Arterial Blood Oxyhemoglobin 98.9 H 94.0-98.0 % Arterial Blood Carboxyhemoglobin 0.3 L 0.5-1.5 % Arterial Blood Methemoglobin 0.6 0.0-1.5 % Roshan Test Yes Blood Gas Total Hemoglobin 11.70 L 12.0-16.0 g/dL Blood Gas Set Respiration Rate 20.0 Blood Gas Modality Vent - ac FiO2 % 100.0 Blood Gas Tidal Volume 550.0 Blood Gas PEEP or CPAP 8.0 Blood Gas Critical Value Read Back Yes Blood Gas Notified Whom Md byers, Blood Gas Notified Time [id number] Blood Gas Notified By Rt michaela redd Lactic Acid Level 2.0 0.4-2.0 mmol/L Test 01/04/25 19:03 01/04/25 17:15 Range/Units Urine Color Yellow Yellow Urine Clarity Turbid H Clear Urine pH 5.5 5.0-9.0 Urine Specific [place] 1.022 1.001-1.035 Urine Protein 1+ H Negative Urine Ketones Negative Negative Urine Blood 1+ H Negative /uL Urine Nitrite Negative Negative Urine Bilirubin Negative Negative Urine Urobilinogen Normal Negative mg/dL Urine Leukocyte Esterase 3+ Negative /uL Urine RBC 59 0 - 4 /hpf Urine Microscopic WBC 251 H 0-5 /HPF Urine Squamous Epithelial Cells Few <5 /hpf Urine Bacteria Few H None Seen /hpf Urine Mucus Few None Seen Urine Yeast (Budding) Many None Seen /hpf Urine Glucose Normal Normal mg/dL Sodium Level 139 136-145 mmol/L Potassium Level 3.4 L 3.5-5.1 mmol/L Chloride Level 107 98-107 mmol/L Carbon Dioxide Level 22 20-31 mmol/L Anion Gap 10 5-15 Blood Urea Nitrogen 13 9-23 mg/dL Creatinine 0.47 L 0.550-1.02 mg/dL Glomerular Filtration Rate Calc 97 >90 mL/min BUN/Creatinine Ratio 27.7 H 10.0-20.0 Serum Glucose 150 H 74-106 mg/dL Calcium Level 8.1 L 8.7-10.4 mg/dL Total Bilirubin 1.1 H 0.2-1.0 mg/dL Aspartate Amino Transferase (AST) 88 H 13-40 U/L Alanine Aminotransferase (ALT) 93 H 7-40 U/L Alkaline Phosphatase 322 H 46-116 U/L B-Type Natriuretic Peptide 270.94 0-100 pg/mL Total Protein 6.0 5.7-8.2 g/dL Albumin 3.3 3.2-4.8 g/dL SEPSIS Sepsis Screen Date sepsis recognized/suspect: Jan 04, 2025 Time Sepsis recognized/suspect: 1614 Recent Procedure: No On Antibiotic Therapy: No Respiratory Rate >20: Yes Heart Rate >90: Yes Temp<36 C (96.8 F) or >38.3 C: Yes SBP <90 or MAP <65 mmHG: No New Acute Mental Status Change: No Is the patient on CPAP, BIPAP,: Yes Physician Orders Vancomycin Per Pharmacy (01/04/25 19:30) Ct Angio Chest Contrast (01/04/25:) Admit (01/04/25:) Ondansetron Hcl (Zofran) (01/04/25 19:30) Complete Blood Count (01/05/25 04:00) Comprehensive Metabolic Panel (01/05/25 04:00) Echo 2d Mode Cardiac Dop (01/04/25:) Condition: Unstable (01/04/25:) Acetaminophen Tablet (Tylenol Tablet) (01/04/25 19:30) Maintain Bed Rest (01/04/25:) Sequential Compression Device (01/04/25 ) Nitroglycerin Sublingual (Ntrostat Subli (01/04/25:30) Morphine Sulfate Injection (01/04/25:30) Stat Ekg For Chest Pain (01/04/25:) Notify Md Of Changes From Base (01/04/25:) Plug Saw Operator For 24 Hours (01/04/25:25) Emergency Dysrhythmia Protocol (01/04/25:25) Rhythm Strips Once Every Shift (01/04/25:25) Oxygen By Nasal Cannula (01/04/25:) Vancomycin,Trough (01/06/25 17:00) Vancomycin Per Pharmacy Protoc (01/06/25 18:00) Vancomycin 1gm/250ml Kit (01/05/25 18:00) Platelet Monitoring (01/04/25 23:48) Vte Protocol Initiated (01/04/25 23:48) Heparin Per Standardized Proce (01/04/25 23:48) Discontinue All Im Injections (01/04/25 23:48) * Radiologist Consult (01/04/25 23:48) Ventilator Orders (01/05/25 00:11) * Cardiology Consult (01/05/25 00:22) Enoxaparin Sodium (Lovenox) (01/05/25 00:30) Troponin-I Hs (01/05/25 03:30) Vital Signs Date Time Temp Pulse Resp B/P (MAP) Pulse Ox O2 Delivery O2 Flow Rate FiO2 01/05/25 02:01 97 27 109/75 (86) 100 30 01/05/25 01:46 109/75 01/05/25 00:03 81 22 111/72 (85) 100 40 01/04/25 23:18 99.0 100 20 102/60 100 99.0 01/04/25 21:55 88 20 102/60 (74) 100 50 01/04/25 20:17 118 20 95/58 (70) 100 100 01/04/25 20:00 117 01/04/25 19:00 99.1 118 20 100/55 (70) 98 99.1 01/04/25 18:45 99.1 121 20 84/53 (63) 96 99.1 Laboratory Tests Test 01/04/25 17:15 01/04/25 19:28 01/05/25 00:15 Lactic Acid Level 2.7 mmol/L (0.4-2.0) *H 2.0 mmol/L (0.4-2.0) White Blood Count 10.3 10^3/uL (4.4-10.8) 10.1 10^3/uL (4.4-10.8) Medications Medications Dose Ordered Sig/Fifi Route Start Time Stop Time Status Last Admin Dose Admin Acetaminophen 1,000 mg ONCE ONCE IV 01/04/25 17:30 01/04/25 17:31 DC 01/04/25 17:33 1,000 MG Cefepime HCl 50 ml @ 12.5 mls/hr Q8HR IV 01/04/25 22:00 01/04/25 22:05 12.5 MLS/HR Enoxaparin Sodium 80 mg Q12HR SC 01/05/25 00:30 01/05/25 01:47 80 MG Etomidate 20 mg ONCE ONCE IV 01/04/25 17:00 01/04/25 17:01 DE 01/04/25 16:25 20 MG Furosemide 20 mg ONCE ONCE IV 01/05/25 01:00 01/05/25 01:01 DC 01/05/25 01:46 20 MG Midazolam HCl 50 ml @ 1 mls/hr Q24H IV 01/04/25 17:00 01/04/25 22:06 7 MLS/HR Norepinephrine Bitartrate 250 ml @ 3.75 mls/hr Q24H IV 01/04/25 18:00 01/04/25 17:50 3.75 MLS/HR Rocuronium [place] 100 mg ONCE ONCE IV 01/04/25 17:00 01/04/25 17:01 DC 01/04/25 16:25 100 MG Sodium Chloride 1,000 ml @ 150 mls/hr Q6H40M ONCE IV 01/04/25 16:45 01/04/25 23:24 DC 01/04/25 17:45 150 MLS/HR Sodium Chloride 1,000 ml @ 1,000 mls/hr Q1H ONCE IV 01/04/25 16:45 01/04/25 17:44 DC 01/04/25 17:07 1,000 MLS/HR Vancomycin HCl 250 ml @ 250 mls/hr ONCE ONCE IV 01/04/25 16:45 01/04/25 17:44 DC 01/04/25 17:31 250 MLS/HR Assessment/Plan Assessment/Plan Assessment Acute hypoxic respiratory failure Saddle embolus Elevated troponin, demand ischemia Possible pneumonia UTI Sepsis Plan Admit the patient to ICU to the hospitalist Cardiology consultation Radiology consult Lovenox twice a day as recommended by Cardiology Cefepime/vancomycin Continue treatment per orders Total critical care time excluding procedures performed this 60 minutes. Plan discussed with: Other My Orders Orders - BRITTANY BYERS Procedure Category Date Status Time Vancomycin Per PHA 01/04/25 In Process Pharmacy 19:[address] 01/04/25 Resulted Contrast 19:25 Admit ADMIT 01/04/25 Transmitted 19:25 Ondansetron Hcl PHA 01/04/25 In Process (Zofran) 19:30 Complete Blood Count LAB 01/05/25 Logged 04:00 Comprehensive LAB 01/05/25 Logged Metabolic Panel 04:00 Echo 2d Mode Cardiac US 01/04/25 Logged DOP 19:25 Condition: Unstable [facility] 01/04/25 In Process 19:25 Acetaminophen Tablet [facility] 01/04/25 In Process (Tylenol Tablet) 19:30 Maintain Bed Rest [facility] 01/04/25 In Process 19:25 Sequential [facility] 01/04/25 In Process Compression Device Nitroglycerin [facility] 01/04/25 In Process Sublingual (Ntrostat 19:30 Morphine Sulfate [facility] 01/04/25 In Process Injection 19:30 Stat Ekg For Chest [facility] 01/04/25 In Process Pain 19:25 Notify Of Changes [facility] 01/04/25 In Process From Base 19:25 Plug Saw Operator For [facility] 01/04/25 In Process 24 Hours 19:25 Emergency Dysrhythmia [facility] 01/04/25 In Process Protocol 19:25 Rhythm Strips Once [facility] 01/04/25 In Process Every Shift 19:25 Oxygen By Nasal RT 01/04/25 Transmitted Cannula 19:25 Vancomycin,Trough LAB 01/06/25 Verified 17:00 Vancomycin Per [facility] 01/06/25 In Process Pharmacy Protoc 18:00 Vancomycin 1gm/250ml [facility] 01/05/25 In Process Kit 18:00 Platelet Monitoring [facility] 01/04/25 In Process 23:48 Vte Protocol Initiated [facility] 01/04/25 In Process 23:48 Heparin Per [facility] 01/04/25 In Process Standardized Proce 23:48 Discontinue All Im [facility] 01/04/25 In Process Injections 23:48 * Radiologist Consult CONS 01/04/25 Transmitted 23:48 * Cardiology Consult CONS 01/05/25 Transmitted 00:22 Enoxaparin Sodium [facility] 01/05/25 In Process (Lovenox) 00:30 Troponin-I Hs LAB 01/05/25 Logged 03:30 Date of Service: Jan 04, 2025 Billing Provider: BRITTANY BYERS Common Visit Codes: [id number] CARE 30-74 MIN BRITTANY BYERS Jan 05, 2025 02:44
[2025-01-05 04:56] LABS: Hematocrit 34.5 % (36.0-46.0); Hemoglobin 11.8 g/dL (12.2-16.2); Mean Corpuscular Hemoglobin 32.3 pg (28.0-32.0); Mean Corpuscular Volume 94.4 fL (80.0-100.0); Nucleated Red Blood Cells % 0.1 %
[2025-01-05 05:16] LABS: Albumin 3.3 g/dL (3.2-4.8); Anion Gap 13 (5-15); BUN/Creatinine Ratio 25.4 (10.0-20.0); Blood Urea Nitrogen 16 mg/dL (9-23); Sodium 141 mmol/L (136-145); Total Protein 6.0 g/dL (5.7-8.2)
[2025-01-05 05:18] LABS: Bilirubin, Total 0.7 mg/dL (0.2-1.0)
[2025-01-05 05:26] LABS: Alanine Aminotransferase 333 U/L (7-40); Alkaline Phosphatase 431 U/L (46-116); Calcium 8.4 mg/dL (8.7-10.4); Carbon Dioxide 20 mmol/L (20-31); Chloride 108 mmol/L (98-107); Glucose 165 mg/dL (74-106); Potassium 3.2 mmol/L (3.5-5.1)
[2025-01-05 07:01] LABS: Base Excess -4.3 mmol/L (-2.0-3.0)
--- NOTE | 2025-01-05 09:50 | DVHINCON2 ---
Date Seen: Jan 05, [address] Rodriguez Reason for Consultation Saddle embolus with right heart strain History of Present Illness This is a 79-year-old female who presented to the emergency room via EMS with a chief complaint of shortness of breath for 30 minutes prior to arrival. At time of assessment, the patient was found endotracheally intubated with 30% FiO2 & PEEP 8.0, chemically sedated, and on single vasopressor. Information obtained from records and next of kin (neighbors) at bedside Deirdre Tran and Pancho Tran who are the patient's caregivers and provided full medical history. They report the patient was diagnosed with an unspecified PE and cerebral edema secondary to a previously diagnosed glioblastoma stage IV at [facility] approximately a month ago. At that time she was sent home on hospice and Eliquis therapy 10 mg BID with the patient developing a lower GI b leed for which she was transitioned to Eliquis 2.5 mg BID. The patient then followed up with her neurologist specialist who recommended to continue hospice care vs palliative care vs a craniotomy for which the patient decided to proceed with surgical intervention scheduled for 01/06/2025 at [facility]. On the pre-op appointment on 12/22/2024 the neurologist specialist aborted the surgery as the patient was not been treated for the previously diagnosed PE as she stopped her Eliquis therapy on 12/06/2024 when she was removed from hospice care. They also report the patient was discharged from [facility] yesterday and an hour after arriving to [facility] she developed severe respiratory distress for which 911 was called. There was no 12 lead electrocardiogram on file neither in cardio cafe server. Troponin levels peaked at 206 ng/L. Significant medical history includes unspecified PE initially on full DOAC therapy diagnosed on 11/2024 at [facility], lower GI bleed on DAOC therapy 11/2024, glioblastoma stage IV status post craniotomy on chemotherapy and with right-sided hemiparesis on 10/20/2023 at [facility], history of breast cancer, seizure activity, dyslipidemia, bedbound/wheelchair status, and recent hospice care status. Past Medical History Past medical history reviewed. No other significant than mentioned above. Past Surgical History Craniotomy 09/2023 at [facility] Family History: Patient reports no known family medical history. Family History Unable to obtain family history at this time. Social History Per POA, there is no use of tobacco, alcohol, or illicit drugs. Allergies: Coded Allergies: NO KNOWN ALLERGIES (Unverified , 11/16/24) Home Meds Unable to obtain home medications. Current Medications Current Medications Medications (Trade) Dose Ordered Sig/Fifi Route PRN Reason Start Time Stop Time Status Last Admin Cefepime HCl 50 ml @ 12.5 mls/hr Q8HR IV 01/04/25 22:00 01/05/25 06:05 Midazolam HCl 50 ml @ 1 mls/hr Q24H IV 01/04/25 17:00 01/05/25 03:55 Norepinephrine Bitartrate 250 ml @ 3.75 mls/hr Q24H IV 01/04/25 18:00 01/05/25 06:06 Vancomycin HCl 0 ml @ 0 mls/hr UD IV 01/04/25 19:30 Ondansetron HCl (Zofran) 4 mg Q4HP PRN IV NAUSEA / VOMITING 01/04/25 19:30 Enoxaparin Sodium (Lovenox) 40 mg DAILY SC 01/05/25 10:00 01/05/25 00:23 DC Acetaminophen (Tylenol Tablet) 650 mg Q6HP PRN PO PAIN SCALE 1-3 OR TEMP>100.4 01/04/25 19:30 Nitroglycerin (Ntrostat Sublingual) 0.4 mg Q5MINP PRN SL FOR CHEST PAIN 01/04/25 19:30 Morphine Sulfate 2 mg Q30M PRN IV FOR CHEST PAIN 01/04/25 19:30 Vancomycin HCl 250 ml @ 250 mls/hr DAILY@1800 IV 01/05/25 18:00 Heparin Sodium/ Dextrose 250 ml @ 13.86 mls/ hr Q18H3M IV 01/05/25 00:00 01/05/25 00:23 DC Enoxaparin Sodium (Lovenox) 80 mg Q12HR SC 01/05/25 00:30 01/05/25 01:47 Review of Systems Constitutional: No symptom reported Ears, Nose, & Throat: No symptom reported Eyes: No symptom reported Neurological: No symptoms reported Pulmonary/Respiratory: SOB Cardiovascular: No symptom reported Gastrointestinal: No symptom reported Genitourinary: No symptom reported Musculoskeletal: No symptom reported Skin: No symptom reported Psychiatric: No symptom reported Endocrine: No symptom reported Hemotologic/Lymphatic: No symptom reported Vital Signs Vital Signs Date Time Temp Pulse Resp B/P (MAP) Pulse Ox O2 Delivery O2 Flow Rate FiO2 01/05/25 08:00 75 01/05/25 07:53 22 105/65 (78) 99 30 01/05/25 07:24 Mechanical Ventilator+ 01/05/25 07:24 98.1 98.1 Physical Exam General Appearance: Withdrawn. Chemically sedated. Endotracheally intubated. On single vasopressor Head Exam: Normal inspection Neck Exam: Normal inspection. Normal alignment Pulmonary/Respiratory: Diminished bilateral breath sounds, endotracheally intubated with 30% FiO2, PEEP 8.0 Cardiovascular/Chest: Regular rate and rhythm. S1, S2. NSR. No murmurs. No JVD. Peripheral Pulses: 2+ Radial (R). 2+ Radial (L). 2+ Pedal (R). 2+ Pedal (L) Abdominal Exam: Normal bowel sounds. Soft. Suction canister with blood contents from oral suction Ankle Exam: Negative ankle edema Lower extremities: Negative lower extremity edema Neuro/Mental Status: Withdrawn. Chemically sedated Thoughts/Psych: Unable to assess at this time Appearance: Withdrawn Skin Exam: Normal inspection. Pale color. Warm. Dry Labs/Diagnostic Data Labs Test 01/05/25 06:52 01/05/25 04:06 01/04/25 23:57 01/04/25 22:13 Range/Units Blood Gas Specimen Type Arterial Blood Gas Sample Site Right radial Blood Gas Patient Temperature 37.0 Arterial Blood Date Drawn [id number] Arterial Blood pH 7.440 7.350-7.450 Arterial Blood Partial Pressure CO2 28.0 L 32.0-45.0 mmHg Arterial Blood Partial Pressure O2 99.6 83.0-108.0 mmHg Arterial Blood HCO3 18.6 L 21.0-28.0 mmol/L Arterial Blood Oxygen Saturation 97.3 94.0-98.0 % Arterial Blood Base Excess -4.3 L -2.0-3.0 mmol/L Arterial Blood Oxyhemoglobin 96.7 94.0-98.0 % Arterial Blood Carboxyhemoglobin 0.2 L 0.5-1.5 % Arterial Blood Methemoglobin 0.4 0.0-1.5 % Roshan Test Modified Blood Gas Total Hemoglobin 12.10 12.0-16.0 g/dL Blood Gas Set Respiration Rate 20.0 Blood Gas Modality Vent - ac Blood Gas Spontaneous Rate 22 FiO2 % 30.0 Blood Gas Tidal Volume 550.0 Blood Gas PEEP or CPAP 8.0 White Blood Count 8.8 4.4-10.8 10^3/uL Red Blood Count 3.66 L 4.0-5.20 10^6/uL Hemoglobin 11.8 L 12.2-16.2 g/dL Hematocrit 34.5 L 36.0-46.0 % Mean Corpuscular Volume 94.4 80.0-100.0 fL Mean Corpuscular Hemoglobin 32.3 H 28.0-32.0 pg Mean Corpuscular Hemoglobin Concent 34.3 32.0-36.0 g/dL Red Cell Distribution Width 15.1 H 11.8-14.3 % Platelet Count 194 140-450 10^3/uL Mean Platelet Volume 7.4 6.9-10.8 fL Neutrophils (%) (Auto) 88.5 H 37.0-80.0 % Lymphocytes (%) (Auto) 7.4 L 10.0-50.0 % Monocytes (%) (Auto) 4.0 0.0-12.0 % Eosinophils (%) (Auto) 0.0 0.0-7.0 % Basophils (%) (Auto) 0.1 0.0-2.0 % Neutrophils # (Auto) 7.8 1.6-8.6 10 ^3/uL Lymphocytes # (Auto) 0.7 0.4-5.4 10 ^3/uL Monocytes # (Auto) 0.4 0-1.3 10 ^3/uL Eosinophils # (Auto) 0 0-0.8 10 ^3/uL Basophils # (Auto) 0 0-0.2 10 ^3/uL Nucleated Red Blood Cells 0.1 % Sodium Level 141 136-145 mmol/L Potassium Level 3.2 L 3.5-5.1 mmol/L Chloride Level 108 H 98-107 mmol/L Carbon Dioxide Level 20 20-31 mmol/L Anion Gap 13 5-15 Blood Urea Nitrogen 16 9-23 mg/dL Creatinine 0.63 # 0.550-1.02 mg/dL Glomerular Filtration Rate Calc 91 >90 mL/min BUN/Creatinine Ratio 25.4 H 10.0-20.0 Serum Glucose 165 H 74-106 mg/dL Calcium Level 8.4 L 8.7-10.4 mg/dL Total Bilirubin 0.7 0.2-1.0 mg/dL Aspartate Amino Transferase (AST) 324 H 13-40 U/L Alanine Aminotransferase (ALT) 333 H 7-40 U/L Alkaline Phosphatase 431 H 46-116 U/L Troponin I High Sensitivity 142 *H </=34 ng/L Total Protein 6.0 5.7-8.2 g/dL Albumin 3.3 3.2-4.8 g/dL Prothrombin Time 11.4 9.3-11.8 sec Prothrombin Time INR 1.08 0.9-1.15 Activated Partial Thromboplast Time 29.3 24.5-34.5 SEC Blood Gas Critical Value Read Back Yes Blood Gas Notified Whom Md rodriguez, Blood Gas Notified Time [id number] Blood Gas Notified By Rt michaela redd Test 01/04/25 19:28 01/04/25 19:03 01/04/25 17:15 Range/Units Lactic Acid Level 2.0 0.4-2.0 mmol/L Urine Color Yellow Yellow Urine Clarity Turbid H Clear Urine pH 5.5 5.0-9.0 Urine Specific [place] 1.022 1.001-1.035 Urine Protein 1+ H Negative Urine Ketones Negative Negative Urine Blood 1+ H Negative /uL Urine Nitrite Negative Negative Urine Bilirubin Negative Negative Urine Urobilinogen Normal Negative mg/dL Urine Leukocyte Esterase 3+ Negative /uL Urine RBC 59 0 - 4 /hpf Urine Microscopic WBC 251 H 0-5 /HPF Urine Squamous Epithelial Cells Few <5 /hpf Urine Bacteria Few H None Seen /hpf Urine Mucus Few None Seen Urine Yeast (Budding) Many None Seen /hpf Urine Glucose Normal Normal mg/dL B-Type Natriuretic Peptide 270.94 0-100 pg/mL Assessment Saddle pulmonary embolus with right heart strain Severe Pulmonary hypertension secondary to above NSTEMI Type II secondary to above Rule out lower extremity DVT Recent history of PE and GI bleed on DOAC (11/2024) Glioblastoma Stage IV on chemotherapy Status post craniotomy (09/2023) Right sided hemiparesis with bed-bound/wheelchair status Plan/Recommendation (Dr. Gutierres) Discussion held with POAs at bedside who provided a full detailed history, Deirdre Riser and Pancho Riser. They stated the patient's wishes did not include mechanical ventilation and they are leaning to a possible mechanical wean which we will defer to primary care team. Given the POAs statements, recent history of GI bleed, advanced glioblastoma stage IV, and recent hospice care, we recommend conservative management. In the meantime, continue therapeutic Lovenox, replete electrolytes as necessary, obtain a twelve-lead electrocardiogram, and obtain a lower extremity venous US. Consider goals of care. Kindly re-consult cardiology for any further recommendations. Thank you for allowing us to participate in this patient's care. Please call if you have any questions or concerns. Critical care time: 50 min. This medical document was created using an electronic medical record system with voice recognition software and computerized dictation system. Although this document has been carefully reviewed, there might still be some phonetic and typographical errors. Occasional wrong-word or ``sound-alike substitutions may have occurred due to the inherent limitations of voice recognition software. These areas are purely typographical due to imperfections of the software programs and do not reflect any compromise in the patient's medical care. Please read the chart carefully and recognize, using context, where these substitutions have occurred. Plan discussed with: Other (Neighbors/POAs Deirdre Riser and Pancho Riser) NYHA Physical activity limitations: NA Date of Service: Jan 05, 2025 Billing Provider: ANNA LOZANO Cardiology Common Codes: [id number] CARE 30-74 MIN ANNA LOZANO Jan 05, 2025 09:50
[2025-01-05] MEDS ORDERED: ENOXAPARIN SOD 40 MG/0.4 ML SYRINGE SC SCH (10:00)
--- NOTE | 2025-01-05 10:39 | ECG ---
[facility] Test Date: 2025-01-05 Test Time: 10:31:14 Pat Name: RICK FLAHERTY Department: Room: 0232 Gender: F Drying Equipment Operator: LUX : [id number] Requested By: ANNA LOZANO Order Number: [id number] Reading MD: Alonzo Gutierres Measurements Intervals [place] Rate: 79 P: 55 OH: 153 QRS: -41 QRSD: 92 T: -32 QT: 414 QTc: 475 Interpretive Statements Sinus rhythm Left anterior fascicular block Low voltage, extremity leads Nonspecific T abnormalities, anterior leads Electronically Signed On 01-11-2025 19:08:55 PDT by Alonzo Gutierres Please click the below link to view image of tracing.
[2025-01-05] MEDS: POTASSIUM CHL 20MEQ/100ML 100 ML IV SCH (10:52)
--- NOTE | 2025-01-05 11:27 | DVH ---
Bilateral lower extremity venous duplex Clinical History: PE rule out DVT Comparison: None Findings: Duplex Doppler evaluation of the deep venous systems of both lower extremities from the common femora l veins to the popliteal veins including color Doppler and spectral/pulsed waveform analysis was perf ormed. RIGHT SIDE: The common femoral vein demonstrates appropriate compressibility and waveform variability. There is compressibility/patency of the great saphenous vein at the proximal thigh. The femoral vein demonstrates appropriate compressibility and waveform variability. The deep femoral vein demonstrates appropriate compressibility and waveform variability. The popliteal vein demonstrates appropriate compressibility and waveform variability. Thrombus in the right posterior tibial vein and peroneal veins. LEFT SIDE: The common femoral vein demonstrates appropriate compressibility and waveform variability. There is compressibility/patency of the great saphenous vein at the proximal thigh. The femoral vein demonstrates appropriate compressibility and waveform variability. The deep femoral vein demonstrates appropriate compressibility and waveform variability. The popliteal vein demonstrates appropriate compressibility and waveform variability. There is normal compressibility at the tibioperoneal trunk. IMPRESSION: Thrombus in the right posterior tibial vein and peroneal veins. No left DVT END IMPRESSION: If clinical concern/symptoms persist or worsen, short-interval follow-up study is suggested.
[2025-01-05] MEDS: LORazepam 2MG/ML-1ML VIAL IV PRN (12:22)
[2025-01-05] MEDS: MORPHINE SULFATE INJ 2 MG/ml SYRG IV PRN (12:22)
--- NOTE | 2025-01-05 16:42 | DVHPN2 ---
Subjective Intubated and Sedated Reviewed: Care Plan, H&P, Labs, Medications Changes from previous H/P or p: No Changes General: Per HPI Objective Vitals Vital Signs Date Time Temp Pulse Resp B/P (MAP) Pulse Ox O2 Delivery O2 Flow Rate FiO2 01/05/25 15:00 98.2 104 22 81/48 (59) 81 98.2 01/05/25 10:15 30 01/05/25 07:24 Mechanical Ventilator+ Intake/Output Intake and Output 01/05/25 07:00 Intake Total 1017.00 ml Output Total 900 ml Balance 117.00 ml Intake IV Total 1017.00 ml Output Urine Total 900 ml General Appearance: severe distress, Other (Chemicallhy sedated) HEENT: Atraumatic, PERRLA Lungs: Other (Mechanical Ventilation) Cardiovascular: Normal S1, Normal S2 Genitourinary: No Apparent Abnormalities (Rossi Catheter) Musculoskeletal: Other (Unable to Assess) Skin: Dry, Intact Psych/Mental Status: Other (Unable to assess) Medications Current Medications Medications Dose Ordered Sig/Fifi Route Start Time Stop Time Status Last Admin Dose Admin Cefepime HCl 50 ml @ 12.5 mls/hr Q8HR IV 01/04/25 22:00 01/05/25 06:05 12.5 MLS/HR Midazolam HCl 50 ml @ 1 mls/hr Q24H IV 01/04/25 17:00 01/05/25 09:53 8 MLS/HR Norepinephrine Bitartrate 250 ml @ 3.75 mls/hr Q24H IV 01/04/25 18:00 01/05/25 06:06 18.75 MLS/HR Vancomycin HCl 0 ml @ 0 mls/hr UD IV 01/04/25 19:30 Ondansetron HCl 4 mg Q4HP PRN IV 01/04/25 19:30 Acetaminophen 650 mg Q6HP PRN PO 01/04/25 19:30 Nitroglycerin 0.4 mg Q5MINP PRN SL 01/04/25 19:30 Morphine Sulfate 2 mg Q30M PRN IV 01/04/25 19:30 Vancomycin HCl 250 ml @ 250 mls/hr DAILY@1800 IV 01/05/25 18:00 Enoxaparin Sodium 80 mg Q12HR SC 01/05/25 00:30 01/05/25 09:50 80 MG Lorazepam 1 mg Q1HP PRN IV 01/05/25 11:45 01/05/25 13:39 1 MG Morphine Sulfate 1 mg Q1HP PRN IV 01/05/25 11:45 01/05/25 12:22 1 MG Laboratory Results Laboratory Tests 01/05/25 04:06 Chemistry Test 01/04/25 17:15 01/05/25 04:06 01/05/25 10:41 Albumin 3.3 g/dL (3.2-4.8) 3.3 g/dL (3.2-4.8) Calcium Level 8.1 mg/dL (8.7-10.4) L 8.4 mg/dL (8.7-10.4) L Total Protein 6.0 g/dL (5.7-8.2) 6.0 g/dL (5.7-8.2) Magnesium Level 1.7 mg/dL (1.6-2.6) Coagulation Test 01/04/25 17:15 01/04/25 23:57 Prothrombin Time 11.6 sec (9.3-11.8) 11.4 sec (9.3-11.8) Prothrombin Time INR 1.11 (0.9-1.15) 1.08 (0.9-1.15) Activated Partial Thromboplast Time 26.1 SEC (24.5-34.5) 29.3 SEC (24.5-34.5) Cardiac Markers Test 01/04/25 17:15 B-Type Natriuretic Peptide 270.94 pg/mL (0-100) LFT Test 01/04/25 17:15 01/05/25 04:06 Alanine Aminotransferase (ALT) 93 U/L (7-40) H 333 U/L (7-40) H Alkaline Phosphatase 322 U/L (46-116) H 431 U/L (46-116) H Aspartate Amino Transferase (AST) 88 U/L (13-40) H 324 U/L (13-40) H Total Bilirubin 1.1 mg/dL (0.2-1.0) H 0.7 mg/dL (0.2-1.0) Urinalysis Test 01/04/25 19:03 Urine Color Yellow (Yellow) Urine Clarity Turbid (Clear) H Urine pH 5.5 (5.0-9.0) Urine Specific [place] 1.022 (1.001-1.035) Urine Protein 1+ (Negative) H Urine Ketones Negative (Negative) Urine Blood 1+ /uL (Negative) H Urine Nitrite Negative (Negative) Urine Bilirubin Negative (Negative) Urine Urobilinogen Normal mg/dL (Negative) Urine Leukocyte Esterase 3+ /uL (Negative) Urine RBC 59 /hpf (0 - 4) Urine Microscopic WBC 251 /HPF (0-5) H Urine Squamous Epithelial Cells Few /hpf (<5) Urine Bacteria Few /hpf (None Seen) H Urine Mucus Few (None Seen) Urine Yeast (Budding) Many /hpf (None Seen) Urine Glucose Normal mg/dL (Normal) Blood Gas Results Test 01/04/25 22:13 01/05/25 06:52 Arterial Blood pH 7.382 (7.350-7.450) 7.440 (7.350-7.450) FiO2 % 100.0 30.0 Microbiology Microbiology Date/Time Source Procedure Growth Status 01/04/25 16:30 Sputum Gram Stain - Final Resulted 01/04/25 16:30 Sputum Respiratory Culture - Preliminary Resulted Labs and/or images reviewed: Labs reviewed by me, Image(s) reviewed by me Assessment/Plan Assessment/Plan Impression: -Acute Hypoxic Respiratory Failure -Saddle pulmonary embolism with cor pulmonale -NSTEMI II secondary to PE -Glioblastoma -UTI -Cardiogenic shock secondary to RV failure -Metabolic Encephalopathy secondary to hypoxia Plan: Extensive discussion made with patient's POA, Deirdre Tran, regarding patient's current grave status as well as obtaining a medical history from the POA which includes craniotomy for glioblastoma 1 year ago, pulmonary embolism, UTI, and recent worsening respiratory status. Given the patient's chronic medical conditions and current medical condition, it is agreed that the patient's goals of care will be comfort measures with plans for compassionate extubation. MARIMAR Baez was present during conversation. Critical care time: 90 min. Plan discussed with: Patient, Other (POA, RN) My Orders Orders - KELSIE PORTILLO ACCOUNTS PAYABLE CLERK Procedure Category Date Status Time Rt To Terminal Wean Pt ORDERS 01/05/25 Transmitted 11:45 Lorazepam 2mg/Ml Inj PHA 01/05/25 In Process (Ativan Inj) 11:45 Morphine Sulfate PHA 9/10/25 In Process Injection 11:45 Date of Service: Jan 05, 2025 Billing Provider: KELSIE PORTILLO NP Common Visit Codes: [id number] CARE 30-74 MIN, [id number] CARE-EACH +30MIN KELSIE PORTILLO NP Jan 05, 2025 16:42
[2025-01-05] MEDS ORDERED: VANCOMYCIN 1GM/250ML KIT 250 ML IV SCH (18:00)
[2025-01-06] VITALS (9 sets, daily range): BP systolic 95–124; BP diastolic 60–79; PULSE 101–107; RESP 17–20; TEMP 97.1–98.1; O2SAT 80–100
--- NOTE | 2025-01-06 11:40 | DVHPN2 ---
Subjective Patient obtunded Reviewed: Care Plan, H&P, Labs, Medications Changes from previous H/P or p: No Changes General: Per HPI Objective Vitals Vital Signs Date Time Temp Pulse Resp B/P (MAP) Pulse Ox O2 Delivery O2 Flow Rate FiO2 01/06/25 10:27 104 19 101/67 01/06/25 09:00 97.6 80 97.6 01/06/25 08:00 Room Air* 0 21 Intake/Output Intake and Output 01/06/25 07:00 Intake Total 133.75 ml Output Total 600 ml Balance -466.25 ml Intake IV Total 133.75 ml Output Urine Total 600 ml General Appearance: severe distress, Other (Chemicallhy sedated) HEENT: Atraumatic, PERRLA Lungs: Other (Mechanical Ventilation) Cardiovascular: Normal S1, Normal S2 Genitourinary: No Apparent Abnormalities (Rossi Catheter) Musculoskeletal: Other (Unable to Assess) Skin: Dry, Intact Psych/Mental Status: Other (Unable to assess) Medications Current Medications Medications Dose Ordered Sig/Fifi Route Start Time Stop Time Status Last Admin Dose Admin Lorazepam 1 mg Q1HP PRN IV 01/05/25 11:45 01/06/25 10:23 1 MG Morphine Sulfate 1 mg Q1HP PRN IV 01/05/25 11:45 01/06/25 10:23 1 MG Laboratory Results Laboratory Tests 01/05/25 04:06 01/06/25 05:15 Urinalysis Test 01/04/25 19:03 Urine Color Yellow (Yellow) Urine Clarity Turbid (Clear) H Urine pH 5.5 (5.0-9.0) Urine Specific [place] 1.022 (1.001-1.035) Urine Protein 1+ (Negative) H Urine Ketones Negative (Negative) Urine Blood 1+ /uL (Negative) H Urine Nitrite Negative (Negative) Urine Bilirubin Negative (Negative) Urine Urobilinogen Normal mg/dL (Negative) Urine Leukocyte Esterase 3+ /uL (Negative) Urine RBC 59 /hpf (0 - 4) Urine Microscopic WBC 251 /HPF (0-5) H Urine Squamous Epithelial Cells Few /hpf (<5) Urine Bacteria Few /hpf (None Seen) H Urine Mucus Few (None Seen) Urine Yeast (Budding) Many /hpf (None Seen) Urine Glucose Normal mg/dL (Normal) Microbiology Microbiology Date/Time Source Procedure Growth Status 01/04/25 17:15 Blood Blood Culture - Preliminary NO GROWTH AFTER 24 HOURS OF INCUBATION. Resulted 01/04/25 16:30 Sputum Gram Stain - Final Resulted 01/04/25 16:30 Sputum Respiratory Culture - Preliminary Resulted Labs and/or images reviewed: Labs reviewed by me, Image(s) reviewed by me Assessment/Plan Assessment/Plan Impression: -Acute Hypoxic Respiratory Failure -Saddle pulmonary embolism with cor pulmonale -NSTEMI II secondary to PE -Glioblastoma -UTI -Cardiogenic shock secondary to RV failure -Metabolic Encephalopathy secondary to hypoxia Plan: Patient currently comfort measures only. Vital signs deteriorating. Continue comfort care until patient passes. Total time spent with patient discussing and formulating plan of care: 35 minutes. This medical document was created using an electronic medical record system with [employer] dictation system. Although this document has been carefully reviewed, there may still be some phonetic and typographical errors. These areas are purely typographical due to imperfections of the software programs, and do not reflect any compromise in the patient's medical care. Plan discussed with: Patient, Other (RN) My Orders Orders - KELSIE PORTILLO NP Procedure Category Date Status Time Rt To Terminal Wean Pt ORDERS 01/05/25 Transmitted 11:45 Lorazepam 2mg/Ml Inj PHA 01/05/25 In Process (Ativan Inj) 11:45 Morphine Sulfate PHA 01/05/25 In Process Injection 11:45 * Wound Consult CONS 01/06/25 Transmitted Date of Service: Jan 06, 2025 Billing Provider: KELSIE PORTILLO NP Common Visit Codes: [id number] INP/OBS CARE(MOD) KELSIE PORTILLO NP Jan 06, 2025 11:40
[2025-01-07] VITALS (8 sets, daily range): BP systolic 113–133; BP diastolic 43–89; PULSE 95–107; RESP 15–18; TEMP 97.6–100.6; O2SAT 91–95
--- NOTE | 2025-01-07 13:30 | DVHPN2 ---
Subjective Patient obtunded Reviewed: Care Plan, H&P, Labs, Medications Changes from previous H/P or p: No Changes General: Per HPI Objective Vitals Vital Signs Date Time Temp Pulse Resp B/P (MAP) Pulse Ox O2 Delivery O2 Flow Rate FiO2 01/07/25 10:05 102 20 114/79 01/07/25 09:00 98.1 95 98.1 01/07/25 08:00 Nasal Cannula* 1 24 General Appearance: severe distress, Other (Chemicallhy sedated) HEENT: Atraumatic, PERRLA Lungs: Other (Mechanical Ventilation) Cardiovascular: Normal S1, Normal S2 Genitourinary: No Apparent Abnormalities (Rossi Catheter) Musculoskeletal: Other (Unable to Assess) Skin: Dry, Intact Psych/Mental Status: Other (Unable to assess) Medications Current Medications Medications Dose Ordered Sig/Fifi Route Start Time Stop Time Status Last Admin Dose Admin Lorazepam 1 mg Q1HP PRN IV 01/05/25 11:45 01/07/25 13:21 1 MG Morphine Sulfate 1 mg Q1HP PRN IV 01/05/25 11:45 01/07/25 09:35 1 MG Laboratory Results Laboratory Tests 01/05/25 04:06 01/06/25 05:15 Urinalysis Test 01/04/25 19:03 Urine Color Yellow (Yellow) Urine Clarity Turbid (Clear) H Urine pH 5.5 (5.0-9.0) Urine Specific [place] 1.022 (1.001-1.035) Urine Protein 1+ (Negative) H Urine Ketones Negative (Negative) Urine Blood 1+ /uL (Negative) H Urine Nitrite Negative (Negative) Urine Bilirubin Negative (Negative) Urine Urobilinogen Normal mg/dL (Negative) Urine Leukocyte Esterase 3+ /uL (Negative) Urine RBC 59 /hpf (0 - 4) Urine Microscopic WBC 251 /HPF (0-5) H Urine Squamous Epithelial Cells Few /hpf (<5) Urine Bacteria Few /hpf (None Seen) H Urine Mucus Few (None Seen) Urine Yeast (Budding) Many /hpf (None Seen) Urine Glucose Normal mg/dL (Normal) Microbiology Microbiology Date/Time Source Procedure Growth Status 01/04/25 17:15 Blood Blood Culture - Preliminary NO GROWTH AFTER 48 HOURS OF INCUBATION. Resulted 01/04/25 16:30 Sputum Gram Stain - Final Resulted 9/9/25 16:30 Sputum Respiratory Culture - Preliminary Resulted Labs and/or images reviewed: Labs reviewed by me, Image(s) reviewed by me Assessment/Plan Assessment/Plan Impression: -Acute Hypoxic Respiratory Failure -Saddle pulmonary embolism with cor pulmonale -NSTEMI II secondary to PE -Glioblastoma -UTI -Cardiogenic shock secondary to RV failure -Metabolic Encephalopathy secondary to hypoxia Plan: Patient currently comfort measures only. Vital signs deteriorating. Continue comfort care until patient passes. Total time spent with patient discussing and formulating plan of care: 35 minutes. This medical document was created using an electronic medical record system with [employer] dictation system. Although this document has been carefully reviewed, there may still be some phonetic and typographical errors. These areas are purely typographical due to imperfections of the software programs, and do not reflect any compromise in the patient's medical care. Plan discussed with: Patient, Other (RN, POA) Date of Service: Jan 07, 2025 Billing Provider: KELSIE PORTILLO NP Common Visit Codes: [id number] INP/OBS CARE(MOD) KELSIE PORTILLO NP Jan 07, 2025 13:30
[2025-01-08] VITALS (8 sets, daily range): BP systolic 109–137; BP diastolic 70–92; PULSE 91–104; RESP 14–20; TEMP 97.6–102.1; O2SAT 91–95
--- NOTE | 2025-01-08 13:00 | DVHPN2 ---
Reviewed: Care Plan, H&P, Labs, Medications Changes from previous H/P or p: No Changes General: Per HPI Objective Vitals Vital Signs Date Time Temp Pulse Resp B/P (MAP) Pulse Ox O2 Delivery O2 Flow Rate FiO2 01/08/25 11:52 93 16 127/76 01/08/25 09:00 97.7 92 97.7 01/08/25 08:00 Nasal Cannula* 1 24 General Appearance: severe distress, Other (Chemicallhy sedated) HEENT: Atraumatic, PERRLA Lungs: Other (Mechanical Ventilation) Cardiovascular: Normal S1, Normal S2 Genitourinary: No Apparent Abnormalities (Rossi Catheter) Musculoskeletal: Other (Unable to Assess) Skin: Dry, Intact Psych/Mental Status: Other (Unable to assess) Medications Current Medications Medications Dose Ordered Sig/Fifi Route Start Time Stop Time Status Last Admin Dose Admin Lorazepam 1 mg Q1HP PRN IV 01/05/25 11:45 01/08/25 12:41 1 MG Morphine Sulfate 1 mg Q1HP PRN IV 01/05/25 11:45 01/08/25 11:22 1 MG Laboratory Results Laboratory Tests 01/05/25 04:06 01/06/25 05:15 Urinalysis Test 01/04/25 19:03 Urine Color Yellow (Yellow) Urine Clarity Turbid (Clear) H Urine pH 5.5 (5.0-9.0) Urine Specific [place] 1.022 (1.001-1.035) Urine Protein 1+ (Negative) H Urine Ketones Negative (Negative) Urine Blood 1+ /uL (Negative) H Urine Nitrite Negative (Negative) Urine Bilirubin Negative (Negative) Urine Urobilinogen Normal mg/dL (Negative) Urine Leukocyte Esterase 3+ /uL (Negative) Urine RBC 59 /hpf (0 - 4) Urine Microscopic WBC 251 /HPF (0-5) H Urine Squamous Epithelial Cells Few /hpf (<5) Urine Bacteria Few /hpf (None Seen) H Urine Mucus Few (None Seen) Urine Yeast (Budding) Many /hpf (None Seen) Urine Glucose Normal mg/dL (Normal) Microbiology Microbiology Date/Time Source Procedure Growth Status 01/04/25 17:15 Blood Blood Culture - Preliminary NO GROWTH AFTER 72 HOURS OF INCUBATION. Resulted 01/04/25 16:30 Sputum Gram Stain - Final Complete 01/04/25 16:30 Sputum Respiratory Culture - Final Complete Labs and/or images reviewed: Labs reviewed by me, Image(s) reviewed by me Assessment/Plan Assessment/Plan Covering for nurse practitioner Andrey Shay -Acute Hypoxic Respiratory Failure -Saddle pulmonary embolism with cor pulmonale -NSTEMI II secondary to PE -Glioblastoma -UTI -Cardiogenic shock secondary to RV failure -Metabolic Encephalopathy secondary to hypoxia Patient's condition poor Continue current management Time spent 50 minutes Plan discussed with: Patient Date of Service: Jan 08, 2025 Billing Provider: TEJINDER WHITNEY MD Common Visit Codes: [id number] INP/OBS CARE(HIGH) TEJINDER WHITNEY MD Jan 08, 2025 13:00
[2025-01-09] VITALS (8 sets, daily range): BP systolic 103–129; BP diastolic 62–80; PULSE 87–107; RESP 14–20; TEMP 97.5–100.6; O2SAT 93–96
--- NOTE | 2025-01-09 09:45 | DVHPN2 ---
Reviewed: Care Plan, H&P, Labs, Medications Changes from previous H/P or p: No Changes General: Per HPI Objective Vitals Vital Signs Date Time Temp Pulse Resp B/P (MAP) Pulse Ox O2 Delivery O2 Flow Rate FiO2 01/09/25 09:00 98.1 87 19 109/76 (87) 96 98.1 01/08/25 20:00 Nasal Cannula* 1 24 Intake/Output Intake and Output 01/09/25 07:00 Intake Total 0 ml Output Total 350 ml Balance -350 ml Intake Oral 0 ml Output Urine Total 350 ml General Appearance: severe distress, Other (Chemicallhy sedated) HEENT: Atraumatic, PERRLA Lungs: Other (Mechanical Ventilation) Cardiovascular: Normal S1, Normal S2 Genitourinary: No Apparent Abnormalities (Rossi Catheter) Musculoskeletal: Other (Unable to Assess) Skin: Dry, Intact Psych/Mental Status: Other (Unable to assess) Medications Current Medications Medications Dose Ordered Sig/Fifi Route Start Time Stop Time Status Last Admin Dose Admin Lorazepam 1 mg Q1HP PRN IV 01/05/25 11:45 01/09/25 04:31 1 MG Morphine Sulfate 1 mg Q1HP PRN IV 01/05/25 11:45 01/09/25 08:41 1 MG Laboratory Results Laboratory Tests 01/05/25 04:06 01/06/25 05:15 Urinalysis Test 01/04/25 19:03 Urine Color Yellow (Yellow) Urine Clarity Turbid (Clear) H Urine pH 5.5 (5.0-9.0) Urine Specific [place] 1.022 (1.001-1.035) Urine Protein 1+ (Negative) H Urine Ketones Negative (Negative) Urine Blood 1+ /uL (Negative) H Urine Nitrite Negative (Negative) Urine Bilirubin Negative (Negative) Urine Urobilinogen Normal mg/dL (Negative) Urine Leukocyte Esterase 3+ /uL (Negative) Urine RBC 59 /hpf (0 - 4) Urine Microscopic WBC 251 /HPF (0-5) H Urine Squamous Epithelial Cells Few /hpf (<5) Urine Bacteria Few /hpf (None Seen) H Urine Mucus Few (None Seen) Urine Yeast (Budding) Many /hpf (None Seen) Urine Glucose Normal mg/dL (Normal) Microbiology Microbiology Date/Time Source Procedure Growth Status 01/04/25 17:15 Blood Blood Culture - Preliminary NO GROWTH AFTER 72 HOURS OF INCUBATION. Resulted 01/04/25 16:30 Sputum Gram Stain - Final Complete 01/04/25 16:30 Sputum Respiratory Culture - Final Complete Labs and/or images reviewed: Labs reviewed by me, Image(s) reviewed by me Assessment/Plan Assessment/Plan Covering for nurse practitioner Andrey Shay -Acute Hypoxic Respiratory Failure -Saddle pulmonary embolism with cor pulmonale -NSTEMI II secondary to PE -Glioblastoma -UTI -Cardiogenic shock secondary to RV failure -Metabolic Encephalopathy secondary to hypoxia Patient's condition poor Continue current management Time spent 46 minutes Plan discussed with: Patient Date of Service: Jan 09, 2025 Billing Provider: TEJINDER WHITNEY MD Common Visit Codes: [id number] INP/OBS CARE(HIGH) TEJINDER WHITNEY MD Jan 09, 2025 09:45
[2025-01-10] VITALS (8 sets, daily range): BP systolic 102–123; BP diastolic 70–82; PULSE 92–107; RESP 15–20; TEMP 97.9–99.1; O2SAT 95–98
--- NOTE | 2025-01-10 10:22 | DVHPN2 ---
Reviewed: Care Plan, H&P, Labs, Medications Changes from previous H/P or p: No Changes General: Per HPI Objective Vitals Vital Signs Date Time Temp Pulse Resp B/P (MAP) Pulse Ox O2 Delivery O2 Flow Rate FiO2 01/10/25 09:00 97.9 92 18 102/70 (81) 97 97.9 01/09/25 20:00 Nasal Cannula* 1 24 General Appearance: severe distress, Other (Chemicallhy sedated) HEENT: Atraumatic, PERRLA Lungs: Other (Mechanical Ventilation) Cardiovascular: Normal S1, Normal S2 Genitourinary: No Apparent Abnormalities (Rossi Catheter) Musculoskeletal: Other (Unable to Assess) Skin: Dry, Intact Psych/Mental Status: Other (Unable to assess) Medications Current Medications Medications Dose Ordered Sig/Fifi Route Start Time Stop Time Status Last Admin Dose Admin Lorazepam 1 mg Q1HP PRN IV 01/05/25 11:45 01/10/25 04:46 1 MG Morphine Sulfate 1 mg Q1HP PRN IV 01/05/25 11:45 01/10/25 06:22 1 MG Laboratory Results Laboratory Tests 01/05/25 04:06 01/06/25 05:15 Urinalysis Test 01/04/25 19:03 Urine Color Yellow (Yellow) Urine Clarity Turbid (Clear) H Urine pH 5.5 (5.0-9.0) Urine Specific [place] 1.022 (1.001-1.035) Urine Protein 1+ (Negative) H Urine Ketones Negative (Negative) Urine Blood 1+ /uL (Negative) H Urine Nitrite Negative (Negative) Urine Bilirubin Negative (Negative) Urine Urobilinogen Normal mg/dL (Negative) Urine Leukocyte Esterase 3+ /uL (Negative) Urine RBC 59 /hpf (0 - 4) Urine Microscopic WBC 251 /HPF (0-5) H Urine Squamous Epithelial Cells Few /hpf (<5) Urine Bacteria Few /hpf (None Seen) H Urine Mucus Few (None Seen) Urine Yeast (Budding) Many /hpf (None Seen) Urine Glucose Normal mg/dL (Normal) Microbiology Microbiology Date/Time Source Procedure Growth Status 01/04/25 17:15 Blood Blood Culture - Final NO GROWTH AFTER 5 DAYS OF INCUBATION. Complete 01/04/25 16:30 Sputum Gram Stain - Final Complete 01/04/25 16:30 Sputum Respiratory Culture - Final Complete Labs and/or images reviewed: Labs reviewed by me, Image(s) reviewed by me Assessment/Plan Assessment/Plan Covering for nurse practitioner Andrey Shay -Acute Hypoxic Respiratory Failure -Saddle pulmonary embolism with cor pulmonale -NSTEMI II secondary to PE -Glioblastoma -UTI -Cardiogenic shock secondary to RV failure -Metabolic Encephalopathy secondary to hypoxia Patient's condition poor Continue current management Time spent 48 minutes Plan discussed with: Patient Date of Service: Jan 10, 2025 Billing Provider: TEJINDER WHITNEY MD Common Visit Codes: [id number] INP/OBS CARE(HIGH) TEJINDER WHITNEY MD Jan 10, 2025 10:22
--- NOTE | 2025-01-10 13:08 | DVHSR ---
APPROVED REPORT EXAM: Two-dimensional and M-mode echocardiogram with Doppler and color Doppler. Blood Pressure: 105/65 mmHg INDICATION EF RISK FACTORS Height: 5'6", Weight: 169 DIMENSIONS LVDd3.4 (3.8-5.7cm)LA (2D)2.8 (1.9-4.0cm)Aortic Root3.1 (2.0-3.7cm) LVDs2.4 (2.5-4.0cm)LA (MM) (1.9-4.0cm)Aortic Cusp Exc1.5 (1.5-2.0cm) EF (%) 60.0 (55-70%)Rt. Atrium5.0 (1.9-4.0cm)Asc. Aorta cm IVSd0.9 (0.7-1.1cm)RV (D) (1.8-2.4cm) Mitral Valve MitralMitral Stenosis E/A ratio0.02D MVAcm2 Aortic Valve Aortic ValveAortic Stenosis V10.83m/Mark Mean GR.mmHg LVOT Diameter1.8 (1.8-2.4cm)Doppler AVA0.00cm2 Pulmonic Valve V20.93m/s Tricuspid Valve TR Velocity3.67m/s [id number] Other Information Quality : Technically LimitedRhythm : Technically limited study due to body habitus and on vent. Conclusion Atrial fibrillation. Right atrial enlargement. Mild aortic root enlargement. Mild dilatation of the sinuses of Valsalva. RV enlargement. There appears to be a sclerotic aortic valve with mild to moderate calcification. There appears to b e calcification between the non and right coronary cusps. The non coronary cusp appears to be free o f any significant calcification. The mitral structurally normal. The tricuspid and pulmonic are wit hin normal limits. Left ventricular systolic performance is irregular given atrial fibrillation however it appears to be better than 55-60% with normal RV function. Doppler reveals [id number] tricuspid regurgitation with an elevated right ventricular pressur e gradient 70 mmHg consistent with severe pulmonary hypertension. No pericardial effusion masses or vegetations.
[2025-01-11] VITALS (8 sets, daily range): BP systolic 104–129; BP diastolic 69–81; PULSE 84–102; RESP 17–18; TEMP 94–98.8; O2SAT 94–98
--- NOTE | 2025-01-11 11:29 | DVHPN2 ---
Subjective Patient obtunded Reviewed: Care Plan, H&P, Labs, Medications Changes from previous H/P or p: No Changes General: Per HPI Objective Vitals Vital Signs Date Time Temp Pulse Resp B/P (MAP) Pulse Ox O2 Delivery O2 Flow Rate FiO2 01/11/25 09:00 97.6 91 18 118/77 (91) 96 97.6 01/11/25 07:50 Nasal Cannula* 1 24 General Appearance: severe distress, Other (Chemicallhy sedated) HEENT: Atraumatic, PERRLA Lungs: Other (Mechanical Ventilation) Cardiovascular: Normal S1, Normal S2 Genitourinary: No Apparent Abnormalities (Rossi Catheter) Musculoskeletal: Other (Unable to Assess) Skin: Dry, Intact Psych/Mental Status: Other (Unable to assess) Medications Current Medications Medications Dose Ordered Sig/Fifi Route Start Time Stop Time Status Last Admin Dose Admin Lorazepam 1 mg Q1HP PRN IV 01/05/25 11:45 01/11/25 05:20 1 MG Morphine Sulfate 1 mg Q1HP PRN IV 01/05/25 11:45 01/11/25 07:00 1 MG Laboratory Results Laboratory Tests 01/05/25 04:06 01/06/25 05:15 Urinalysis Test 01/04/25 19:03 Urine Color Yellow (Yellow) Urine Clarity Turbid (Clear) H Urine pH 5.5 (5.0-9.0) Urine Specific [place] 1.022 (1.001-1.035) Urine Protein 1+ (Negative) H Urine Ketones Negative (Negative) Urine Blood 1+ /uL (Negative) H Urine Nitrite Negative (Negative) Urine Bilirubin Negative (Negative) Urine Urobilinogen Normal mg/dL (Negative) Urine Leukocyte Esterase 3+ /uL (Negative) Urine RBC 59 /hpf (0 - 4) Urine Microscopic WBC 251 /HPF (0-5) H Urine Squamous Epithelial Cells Few /hpf (<5) Urine Bacteria Few /hpf (None Seen) H Urine Mucus Few (None Seen) Urine Yeast (Budding) Many /hpf (None Seen) Urine Glucose Normal mg/dL (Normal) Microbiology Microbiology Date/Time Source Procedure Growth Status 01/04/25 17:15 Blood Blood Culture - Final NO GROWTH AFTER 5 DAYS OF INCUBATION. Complete 01/04/25 16:30 Sputum Gram Stain - Final Complete 01/04/25 16:30 Sputum Respiratory Culture - Final Complete Labs and/or images reviewed: Labs reviewed by me, Image(s) reviewed by me Assessment/Plan Assessment/Plan Impression: -Acute Hypoxic Respiratory Failure -Saddle pulmonary embolism with cor pulmonale -NSTEMI II secondary to PE -Glioblastoma -UTI -Cardiogenic shock secondary to RV failure -Metabolic Encephalopathy secondary to hypoxia Plan: Patient currently comfort measures only. Vital signs deteriorating. Continue comfort care until patient passes. -social service consultation for DC planning with hospice Total time spent with patient discussing and formulating plan of care: 35 minutes. This medical document was created using an electronic medical record system with [employer] dictation system. Although this document has been carefully reviewed, there may still be some phonetic and typographical errors. These areas are purely typographical due to imperfections of the software programs, and do not reflect any compromise in the patient's medical care. Plan discussed with: Patient, Other (RN) Date of Service: Jan 11, 2025 Billing Provider: KELSIE PORTILLO NP Common Visit Codes: [id number] INP/OBS CARE(HIGH) KELSIE PORTILLO NP Jan 11, 2025 11:29
[2025-01-12 01:00] VITALS: BP 122/81; PULSE 102; RESP 18; TEMP 98.9; O2SAT 100
[2025-01-12 05:00] VITALS: BP 122/77; PULSE 96; RESP 18; TEMP 97.8; O2SAT 98
[2025-01-12 09:00] VITALS: BP 94/62; PULSE 87; RESP 20; TEMP 98.1; O2SAT 94
[2025-01-12 13:00] VITALS: BP 100/69; PULSE 87; RESP 19; TEMP 97.4; O2SAT 97
--- NOTE | 2025-01-12 13:10 | DVHDS2 ---
Discharge Summary Date of Admission Jan 04, 2025 at 19:25 Date of Discharge: Jan 12, 2025 Admitting Diagnosis Acute hypoxic respiratory failure Labs/Diagnostic Data: Laboratory Results Test 01/06/25 05:15 01/05/25 10:41 01/05/25 06:52 01/05/25 04:06 Creatinine 0.43 mg/dL (0.550-1.02) Glomerular Filtration Rate Calc 99 mL/min (>90) Magnesium Level 1.7 mg/dL (1.6-2.6) Blood Gas Specimen Type Arterial Blood Gas Sample Site Right radial Blood Gas Patient Temperature 37.0 Arterial Blood Date Drawn [id number] Arterial Blood pH 7.440 (7.350-7.450) Arterial Blood Partial Pressure CO2 28.0 mmHg (32.0-45.0) Arterial Blood Partial Pressure O2 99.6 mmHg (83.0-108.0) Arterial Blood HCO3 18.6 mmol/L (21.0-28.0) Arterial Blood Oxygen Saturation 97.3 % (94.0-98.0) Arterial Blood Base Excess -4.3 mmol/L (-2.0-3.0) Arterial Blood Oxyhemoglobin 96.7 % (94.0-98.0) Arterial Blood Carboxyhemoglobin 0.2 % (0.5-1.5) Arterial Blood Methemoglobin 0.4 % (0.0-1.5) Roshan Test Modified Blood Gas Total Hemoglobin 12.10 g/dL (12.0-16.0) Blood Gas Set Respiration Rate 20.0 Blood Gas Modality Vent - ac Blood Gas Spontaneous Rate 22 FiO2 % 30.0 Blood Gas Tidal Volume 550.0 Blood Gas PEEP or CPAP 8.0 White Blood Count 8.8 10^3/uL (4.4-10.8) Red Blood Count 3.66 10^6/uL (4.0-5.20) Hemoglobin 11.8 g/dL (12.2-16.2) Hematocrit 34.5 % (36.0-46.0) Mean Corpuscular Volume 94.4 fL (80.0-100.0) Mean Corpuscular Hemoglobin 32.3 pg (28.0-32.0) Mean Corpuscular Hemoglobin Concent 34.3 g/dL (32.0-36.0) Red Cell Distribution Width 15.1 % (11.8-14.3) Platelet Count 194 10^3/uL (140-450) Mean Platelet Volume 7.4 fL (6.9-10.8) Neutrophils (%) (Auto) 88.5 % (37.0-80.0) Lymphocytes (%) (Auto) 7.4 % (10.0-50.0) Monocytes (%) (Auto) 4.0 % (0.0-12.0) Eosinophils (%) (Auto) 0.0 % (0.0-7.0) Basophils (%) (Auto) 0.1 % (0.0-2.0) Neutrophils # (Auto) 7.8 10 ^3/uL (1.6-8.6) Lymphocytes # (Auto) 0.7 10 ^3/uL (0.4-5.4) Monocytes # (Auto) 0.4 10 ^3/uL (0-1.3) Eosinophils # (Auto) 0 10 ^3/uL (0-0.8) Basophils # (Auto) 0 10 ^3/uL (0-0.2) Nucleated Red Blood Cells 0.1 % Sodium Level 141 mmol/L (136-145) Potassium Level 3.2 mmol/L (3.5-5.1) Chloride Level 108 mmol/L (98-107) Carbon Dioxide Level 20 mmol/L (20-31) Anion Gap 13 (5-15) Blood Urea Nitrogen 16 mg/dL (9-23) BUN/Creatinine Ratio 25.4 (10.0-20.0) Serum Glucose 165 mg/dL (74-106) Calcium Level 8.4 mg/dL (8.7-10.4) Total Bilirubin 0.7 mg/dL (0.2-1.0) Aspartate Amino Transferase (AST) 324 U/L (13-40) Alanine Aminotransferase (ALT) 333 U/L (7-40) Alkaline Phosphatase 431 U/L (46-116) Troponin I High Sensitivity 142 ng/L (</=34) Total Protein 6.0 g/dL (5.7-8.2) Albumin 3.3 g/dL (3.2-4.8) Test 01/04/25 23:57 01/04/25 22:13 01/04/25 19:28 01/04/25 19:03 Prothrombin Time 11.4 sec (9.3-11.8) Prothrombin Time INR 1.08 (0.9-1.15) Activated Partial Thromboplast Time 29.3 SEC (24.5-34.5) Blood Gas Critical Value Read Back Yes Blood Gas Notified Whom Md cruz, Blood Gas Notified Time [id number] Blood Gas Notified By Rt michaela redd Lactic Acid Level 2.0 mmol/L (0.4-2.0) Urine Color Yellow (Yellow) Urine Clarity Turbid (Clear) Urine pH 5.5 (5.0-9.0) Urine Specific [place] 1.022 (1.001-1.035) Urine Protein 1+ (Negative) Urine Ketones Negative (Negative) Urine Blood 1+ /uL (Negative) Urine Nitrite Negative (Negative) Urine Bilirubin Negative (Negative) Urine Urobilinogen Normal mg/dL (Negative) Urine Leukocyte Esterase 3+ /uL (Negative) Urine RBC 59 /hpf (0 - 4) Urine Microscopic WBC 251 /HPF (0-5) Urine Squamous Epithelial Cells Few /hpf (<5) Urine Bacteria Few /hpf (None Seen) Urine Mucus Few (None Seen) Urine Yeast (Budding) Many /hpf (None Seen) Urine Glucose Normal mg/dL (Normal) Test 01/04/25 17:15 B-Type Natriuretic Peptide 270.94 pg/mL (0-100) Other Laboratory Tests 01/06/25 05:15 01/05/25 04:06 Brief Hx & Hospital Course: History of Present Illness 79-year-old female presents for evaluation of shortness for breath. Patient is currently sedated and intubated. Patient with a history of pulmonary embolism diagnosed two weeks ago at [facility]. Patient recently discharged couple of days ago from [facility] after being admitted and treated for sepsis secondary to UTI. Patient was sent to [place] in assisted living. Patient started having shortness for breath and was brought in for evaluation. On arrival to the emergency department patient was placed on CPAP and subsequently emergently intubated for airway protection. Course of hospitalization: Patient was intubated and sedated while in the hospital. Discussion was made with the patient's durable [id number] regarding plan of care which includes cardiology consultation for possible thrombectomy of saddle PE which was found on the CT angiogram. Patient has a history of pulmonary embolism, and was recently taken off of anticoagulation secondary to GI bleed. Patient has a significant history of glioblastoma with craniectomy. Over the past one year since having her surgery her overall clinical status has deteriorated for which she is no longer to be cared for in her home setting and has been transitioned to a assisted living facility. Patient has living will/advance directive stating DNR/DNI status. Patient was compassionately extubated from the ventilator. Patient continues to have metabolic encephalopathy. At this time she will be transferred back to hospice services. This was agreed to by patient's durable [id number], Deirdre. Physical examination General: Unresponsive, obtunded Eyes: EOMI. Anicteric. HENT: Moist mucous membranes. Lungs: Clear to auscultation bilaterally. No accessory muscle use. Kussmaul breathing Cardiovascular: Regular rate and rhythm. No murmur. No JVD. Abdomen: Soft, non-tender and non-distended. No palpable masses. Extremities: No edema. Non-tender. Skin: No rashes or lesions. Warm. Neurologic: No focal neurological deficits. CN II-XII grossly intact, but not individually tested. Psychiatric: Cooperative. Appropriate mood and affect. Total time spent with patient discussing and formulating plan of care: 35 minutes. This medical document was created using an electronic medical record system with [employer] dictation system. Although this document has been carefully reviewed, there may still be some phonetic and typographical errors. These areas are purely typographical due to imperfections of the software programs, and do not reflect any compromise in the patient's medical care. Consults/Reason for consult Cardiology: Assess for pulmonary thrombectomy Condition at Discharge: Poor Final Diagnosis/Problems List Acute hypoxic Respiratory failure Secondary diagnosis: -Saddle pulmonary embolism with cor pulmonale -NSTEMI II secondary to PE -Glioblastoma -UTI -Cardiogenic shock secondary to RV failure -Metabolic Encephalopathy secondary to hypoxia Discharge Disposition: Hospice - Home Discharge Instruct/Medications Diet: Regular Activity: No Restrictions, As Tolerated Medications: Per hospice provider 36 Discharge Statement: "Patient was advised to return to the ER or call 911 if any headaches, dizziness, shortness of breath, chest pain, abdominal pain, bleeding, fevers, or worsening of medical condition. Patient was counseled about treatment plan, medications, possible side effects, patientverbalized understanding. All questions were answered to the best of my ability. This discharge took greater then 30 minutes in planning, reviewing documentation, counseling the patient, and discussing with other team members." ASSESSMENT ASSESSMENT Assessment Acute hypoxic Respiratory failure Date of Service: Jan 12, 2025 Billing Provider: KELSIE PORTILLO NP Common Visit Codes: [id number] DISCH DAY >30min KELSIE PORTILLO NP Jan 12, 2025 13:10
[2025-01-12 16:48] VITALS: BP 118/79; PULSE 92; RESP 17; TEMP 98.8; O2SAT 97
[2025-01-12 17:12] VITALS: BP 130/89; PULSE 100; RESP 16
== END 2025-01-12 19:30 | disposition hospice, home (50) | DRG 208 ==
LOC: EDBD 16:13 → ER 16:18 → OVERFLOW 19:25 → EAST 01-05 23:20
PROVIDERS: ADMIT Nurse Practitioner Acute Care; ATTEND Nurse Practitioner Acute Care
PROC: 5A1935Z Respiratory Ventilation, Less than 24 Consecutive Hours (ICD-10-PCS; principal; 2025-01-04)
PROC: 0BH17EZ Insertion of Endotracheal Airway into Trachea, Via Natural or Artificial Opening (ICD-10-PCS; 2025-01-04)
PROC: 02HV33Z Insertion of Infusion Device into Superior Vena Cava, Percutaneous Approach (ICD-10-PCS; 2025-01-04)
DX: J96.01 Acute respiratory failure with hypoxia (principal); A41.9 Sepsis, unspecified organism; G93.41 Metabolic encephalopathy; I21.A1 Myocardial infarction type 2; I26.92 Saddle embolus of pulmonary artery without acute cor pulmonale; R57.0 Cardiogenic shock; N39.0 Urinary tract infection, site not specified; G81.91 Hemiplegia, unspecified affecting right dominant side; C71.9 Malignant neoplasm of brain, unspecified; Z51.5 Encounter for palliative care; Z66 Do not resuscitate; I27.29 Other secondary pulmonary hypertension; E78.5 Hyperlipidemia, unspecified; Z74.01 Bed confinement status; Z85.841 Personal history of malignant neoplasm of brain; Z85.3 Personal history of malignant neoplasm of breast; Z99.3 Dependence on wheelchair
CPT/HCPCS: 31500; 36415; 36556; 36600; 71045; 71275; 80053; 81001; 82565; 82805; 83605; 83735; 83880; 84484; 85025; 85610; 85730; 87040; 87070; 87205; 93005; 93306; 93970; 94002; 94003; 96365; 96375; 99291; 99292; G0378; J0131; J3480